=== PATIENT | female | born 1975 ===

== ENCOUNTER 2017-09-04 07:05 | Inpatient (IN) | payer MEDICAID, MEDICARE ==
[2017-09-04 07:16] VITALS: BMI 24.3
[2017-09-04] MEDS ORDERED: Albuterol-Ipratrop 3 mg / 0.5 (3 ml) UD IH STA (07:41)
[2017-09-04] MEDS ORDERED: Sodium Chloride 0.9% 1,000 ML IV STA (07:41)
[2017-09-04] MEDS ORDERED: Albuterol-Ipratrop 3 mg / 0.5 (3 ml) UD INH STA ×2 (07:41→07:42)
[2017-09-04] MEDS ORDERED: Albuterol-Ipratrop 3 mg / 0.5 (3 ml) UD ONE (08:04)
[2017-09-04 08:05] LABS: ABG ALLEN TEST YES
[2017-09-04 08:13] LABS: ARTERIAL BLOOD GAS HCO3 23.1 mmol/L (21-28); ARTERIAL BLOOD GAS PH 7.43 (7.35-7.45); ARTERIAL BLOOD GAS PO2 76 mm/Hg (80-100); VENOUS BLOOD GAS BASE EXCESS -2.3 mmol/L (0.0-2.0); VENOUS BLOOD GAS PCO2 32 mmHg (40-60); VENOUS BLOOD PH 7.43 (7.32-7.43)
--- NOTE | 2017-09-04 08:13 | ED PDOC ---
HPI: SOB/CHF/COPD Time Seen by Provider: 09/04/17 07:17 Chief Complaint (Nursing): Shortness Of Breath Chief Complaint (Provider): Shortness Of Breath History Per: Patient History/Exam Limitations: no limitations Onset/Duration Of Symptoms: Hrs (x2) Current Symptoms Are (Timing): Still Present Associated Symptoms: Productive Cough Additional Complaint(s): Miryam is a 42 y/o female with a past medical history of asthma who presents to the ED complaining of cough and shortness of breath, since 5:45 this morning. Patient describes episode as similar to asthma attacks in the past. Cough is productive of yellow-green sputum. Also complaining of generalized body aches but no nausea, vomiting, abdominal pain, diarrhea, weakness, numbness, or headache. Took Albuterol treatments at home without improvement. No chest pain. Nasal congestion. PMD: Anson Holder Past Medical History Reviewed: Historical Data, Nursing Documentation, Vital Signs Vital Signs: Last Vital Signs Temp 98 F 09/04/17 07:27 Pulse 123 H 09/04/17 07:27 Resp 22 09/04/17 07:27 BP 120/81 09/04/17 07:27 Pulse Ox 97 09/04/17 11:25 - Medical History PMH: Asthma, Migraine, Multiple Sclerosis Other PMH: Multiple sclerosis - Family History Family History: States: Unknown Family Hx - Living Arrangements Living Arrangements: With Family - Social History Current smoker - smoking cessation education provided: Yes Alcohol: Occasional Drugs: Cannabis - Allergies Allergies/Adverse Reactions: Allergies Allergy/AdvReac Type Severity Reaction Status Date / Time iodine Allergy RASH Verified 09/04/17 07:15 Review of Systems ROS Statement: Except As Marked, All Systems Reviewed And Found Negative Constitutional: Positive for: Other (body aches). Negative for: Fever, Chills ENT: Positive for: Nose Congestion Cardiovascular: Negative for: Chest Pain Respiratory: Positive for: Cough, Shortness of Breath, Sputum, Wheezing Gastrointestinal: Negative for: Nausea, Vomiting, Abdominal Pain, Diarrhea Musculoskeletal: Negative for: Back Pain Neurological: Negative for: Weakness, Numbness, Headache, Dizziness Physical Exam - Reviewed Nursing Documentation Reviewed: Yes Vital Signs Reviewed: Yes - Physical Exam Appears: Positive for: Uncomfortable Head Exam: Positive for: ATRAUMATIC, NORMAL INSPECTION, NORMOCEPHALIC Skin: Positive for: Normal Color, Warm, Dry Eye Exam: Positive for: EOMI, Normal appearance, PERRL ENT: Positive for: Normal ENT Inspection, Nasal Congestion Neck: Positive for: Normal, Painless ROM Cardiovascular/Chest: Positive for: Regular Rate, Rhythm. Negative for: Murmur Respiratory: Positive for: Wheezing (diffuse). Negative for: Respiratory Distress Gastrointestinal/Abdominal: Positive for: Normal Exam, Soft. Negative for: Tenderness Back: Positive for: Normal Inspection. Negative for: L CVA Tenderness, R CVA Tenderness, Vertebral Tenderness Extremity: Positive for: Normal ROM, Capillary Refill (< 2 sec). Negative for: Pedal Edema, Deformity Neurologic/Psych: Positive for: Alert, Oriented. Negative for: Motor/Sensory Deficits - Laboratory Results Result Diagrams: 09/04/17 08:00 09/04/17 08:00 Interpretation Of Abn Labs: no acute - ECG ECG: Positive for: Interpreted By Me, Viewed By Me ECG Rhythm: Positive for: Sinus Tachycardia. Negative for: ST/T Changes O2 Sat by Pulse Oximetry: 97 (RA) Pulse Ox Interpretation: Normal - Radiology X-Ray: Read By Radiologist X-Ray Interpretation: No Acute Disease - Progress ED Course And Treament: 1125: Stable. Still has dyspnea, wheezes. Will need admit for further eval. 1128: Spoke with Dr. Holder. Will admit tele obs and give further orders when pt. reaches floor. - Critical Care Total Time (In Min): 30 Documented Critical Care: Time excludes all time spent performint seperately billable procedures Medical Decision Making Medical Decision Making: Time: 07:41 Initial Plan: --ABG --VBG --B-type natriuretic peptide --CMP --Magnesium --Phosphorous --Troponin I --CBC --PTT --Prothrombin time --Blood culture --EKG --Chest X-Ray --Duoneb 3 ml INH x3 --Peak Flow pre/post treatment --NS IV 1000 ml at 1000 mls/hr --Solu-Medrol 125 mg IV --Pending reevaluation Scribe Attestation: Documented by Adrienne Rhoades, acting as a scribe for Benigno Naidu MD Provider Scribe Attestation: All medical record entries made by the Scribe were at my direction and personally dictated by me. I have reviewed the chart and agree that the record accurately reflects my personal performance of the history, physical exam, medical decision making, and the department course for this patient. I have also personally directed, reviewed, and agree with the discharge instructions and disposition. Disposition - Clinical Impression Clinical Impression: Asthma attack - Patient ED Disposition Is Patient to be Admitted: No Counseled Patient/Family Regarding: Studies Performed, Diagnosis - Disposition Disposition Time: 11:28 Condition: FAIR - Pt Status Changed To: Hospital Disposition Of: Observation - POA Present On Arrival: None
[2017-09-04 08:18] LABS: BASO % 0.1 % (0.0-2.0); EOS # 0.1 K/uL (0.0-0.7); EOS % 1.7 % (0.0-4.0); HEMATOCRIT 40.2 % (34.0-47.0); LYMPH # 0.9 K/uL (1.0-4.3); LYMPH % 11.1 % (20.0-40.0); MEAN CELL VOLUME 78.5 fl (81.0-99.0); MEAN CORPUSCULAR HEMOGLOBIN 26.1 pg (27.0-31.0); MEAN CORPUSCULAR HGB CONC 33.2 g/dL (33.0-37.0); MEAN PLATELET VOLUME 9.2 fl (7.2-11.7); MONO # 0.6 K/uL (0.0-0.8); MONO % 7.8 % (0.0-10.0); NEUT # 6.2 K/uL (1.8-7.0); NEUT % 79.3 % (50.0-75.0); NRBC % 0.1 % (0.0-0.0); RED CELL DISTRIBUTION WIDTH 18.9 % (11.5-14.5); WHITE BLOOD COUNT 7.9 K/uL (4.8-10.8)
[2017-09-04 08:27] LABS: ALB/GLOB RATIO 1.2 (1.0-2.1); ALKALINE PHOSPHATASE 106 U/L (38-126); ALT/SGPT 36 U/L (9-52); AST/SGOT 24 U/L (14-36); BILIRUBIN,TOTAL 0.3 mg/dl (0.2-1.3); BLOOD UREA NITROGEN 16 mg/dl (7-17); CALCIUM 8.9 mg/dL (8.4-10.2); CARBON DIOXIDE 23 mmol/L (22-30); CHLORIDE 109 mmol/L (98-107); GFR AFRICAN-AMERICAN > 60; GLUCOSE,RANDOM 118 mg/dL (65-105); MAGNESIUM 2.3 MG/DL (1.6-2.3); PHOSPHOROUS 2.3 mg/dl (2.5-4.5); POTASSIUM 3.7 MMOL/L (3.6-5.0); SODIUM 145 mmol/l (132-148); TOTAL PROTEIN 8.3 G/DL (6.3-8.2)
[2017-09-04 08:44] LABS: PARTIAL THROMBOPLASTIN TIME 30.8 Seconds (25.6-37.1)
--- NOTE | 2017-09-04 10:02 | RAD ---
HISTORY: Sepsis Patient COMPARISON: Chest radiographs 12/23/2012. FINDINGS: LUNGS: No active pulmonary disease. PLEURA: No significant pleural effusion identified, no pneumothorax apparent. CARDIOVASCULAR: Normal. OSSEOUS STRUCTURES: No significant abnormalities. VISUALIZED UPPER ABDOMEN: Normal. OTHER FINDINGS: None. IMPRESSION: No interval acute cardiopulmonary disease appreciated.
[2017-09-04] MEDS ORDERED: Magnesium Sulfate 2 gm/50 ml 2 GM/50 ML BAG IVPB ONE (11:24)
[2017-09-04] MEDS ORDERED: Magnesium Sulfate 2 gm/50 ml 2 GM/50 ML BAG ONE (11:31)
[2017-09-04] MEDS ORDERED: Sodium Chloride 3% for Inhalation 4 ML VIAL.NEB IH PRN (12:30)
--- NOTE | 2017-09-04 13:20 | CP.PCM.HP ---
History of Present Illness - History of Present Illness History of Present Illness: 42 y/o female with hx of advance MS and asthma. She c/o SOB since this morning, she used several times her beta agonist med by inh with no improvement. In ER she presented with severe SOB hypoxic 72% O2 in ABG. Still in distress Present on Admission - Present on Admission Any Indicators Present on Admission: No Review of Systems - Constitutional Constitutional: As Per HPI - EENT Eyes: As Per HPI - Cardiovascular Cardiovascular: As Per HPI - Respiratory Respiratory: Cough, Dyspnea, Wheezing - Gastrointestinal Gastrointestinal: As Per HPI - Musculoskeletal Musculoskeletal: As Per HPI - Neurological Neurological: As Per HPI - Psychiatric Psychiatric: As Per HPI Past Patient History - Past Social History Alcohol: Occasional Drugs: Cannabis - PULMONARY Hx Asthma: Yes - NEUROLOGICAL Hx Migraine: Yes Hx Multiple Sclerosis: Yes - PSYCHIATRIC Hx Substance Use: Yes - ANESTHESIA Hx Anesthesia: No Meds Allergies/Adverse Reactions: Allergies Allergy/AdvReac Type Severity Reaction Status Date / Time iodine Allergy RASH Verified 09/04/17 07:15 Physical Exam - Constitutional Appears: In Acute Distress - Head Exam Head Exam: ATRAUMATIC, NORMAL INSPECTION, NORMOCEPHALIC - Eye Exam Eye Exam: Normal appearance - ENT Exam ENT Exam: Mucous Membranes Moist - Neck Exam Neck exam: Positive for: Full Rom - Respiratory Exam Respiratory Exam: Wheezes - Cardiovascular Exam Cardiovascular Exam: REGULAR RHYTHM, +S1, +S2 - GI/Abdominal Exam GI & Abdominal Exam: Normal Bowel Sounds - Rectal Exam Rectal Exam: Deferred - Extremities Exam Extremities exam: Positive for: normal inspection - Back Exam Back exam: NORMAL INSPECTION - Neurological Exam Neurological exam: Alert, Oriented x3 - Psychiatric Exam Psychiatric exam: Anxious - Skin Skin Exam: Normal Color Results - Vital Signs Recent Vital Signs: Last Vital Signs Temp 97.7 F 09/04/17 13:05 Pulse 111 H 09/04/17 13:05 Resp 18 09/04/17 13:05 BP 142/82 09/04/17 13:05 Pulse Ox 95 09/04/17 13:05 - Labs Result Diagrams: 09/04/17 08:00 09/04/17 08:00 Labs: Laboratory Results - last 24 hr 09/04/17 09/04/17 09/04/17 07:55 08:00 08:00 WBC 7.9 RBC 5.12 Hgb 13.3 Hct 40.2 MCV 78.5 L MCH 26.1 L MCHC 33.2 RDW 18.9 H Plt Count 264 MPV 9.2 Neut % (Auto) 79.3 H Lymph % (Auto) 11.1 L Price % (Auto) 7.8 Eos % (Auto) 1.7 Baso % (Auto) 0.1 Neut # 6.2 Lymph # 0.9 L Price # 0.6 Eos # 0.1 Baso # 0.0 PT INR APTT pCO2 32 L pO2 76 H HCO3 23.1 ABG pH 7.43 ABG Total CO2 22.2 ABG O2 Saturation 98.3 H ABG Base Excess -2.3 L Merrill Test Yes ABG Potassium 3.3 L VBG pH 7.43 VBG pCO2 32 L VBG HCO3 23.1 VBG Total CO2 22.2 VBG O2 Sat (Calc) 98.3 H VBG Base Excess -2.3 L VBG Potassium 3.3 L A-a O2 Difference 84.0 Sodium 138.0 145 Chloride 108.0 H 109 H Glucose 113 H Lactate 1.4 FiO2 28.0 Potassium 3.7 Carbon Dioxide 23 Anion Gap 17 BUN 16 Creatinine 0.6 L Est GFR ( Amer) > 60 Est GFR (Non-Af Amer) > 60 Random Glucose 118 H Calcium 8.9 Phosphorus 2.3 L Magnesium 2.3 Total Bilirubin 0.3 AST 24 ALT 36 Alkaline Phosphatase 106 Troponin I < 0.0120 NT-Pro-B Natriuret Pep 147 Total Protein 8.3 H Albumin 4.6 Globulin 3.8 Albumin/Globulin Ratio 1.2 Arterial Blood Potassium 3.3 L Venous Blood Potassium 3.3 L 09/04/17 08:00 WBC RBC Hgb Hct MCV MCH MCHC RDW Plt Count MPV Neut % (Auto) Lymph % (Auto) Price % (Auto) Eos % (Auto) Baso % (Auto) Neut # Lymph # Price # Eos # Baso # PT 12.4 INR 1.1 APTT 30.8 pCO2 pO2 HCO3 ABG pH ABG Total CO2 ABG O2 Saturation ABG Base Excess Merrill Test ABG Potassium VBG pH VBG pCO2 VBG HCO3 VBG Total CO2 VBG O2 Sat (Calc) VBG Base Excess VBG Potassium A-a O2 Difference Sodium Chloride Glucose Lactate FiO2 Potassium Carbon Dioxide Anion Gap BUN Creatinine Est GFR ( Amer) Est GFR (Non-Af Amer) Random Glucose Calcium Phosphorus Magnesium Total Bilirubin AST ALT Alkaline Phosphatase Troponin I NT-Pro-B Natriuret Pep Total Protein Albumin Globulin Albumin/Globulin Ratio Arterial Blood Potassium Venous Blood Potassium Assessment & Plan (1) Hypoxia Status: Acute (2) Multiple sclerosis Status: Chronic (3) Asthma attack Status: Acute (4) Debility Status: Chronic - Assessment and Plan (Free Text) Plan: As per orders.
[2017-09-04] MEDS ORDERED: Potassium Chloride 10 mEq ER Tab PO ONE (13:29)
[2017-09-04] MEDS: Enoxaparin 40 mg Syringe SC SCH (15:50)
[2017-09-04] MEDS: Potassium & Sodium Phosphate PO SCH (15:50)
[2017-09-04] MEDS: Fluticasone-Salmeterol 250-50mcg Diskus IH SCH (15:50)
[2017-09-04] MEDS: Albuterol-Ipratrop 3 mg / 0.5 (3 ml) UD INH PRN ×2 (17:10→20:19)
[2017-09-04] MEDS ORDERED: Pneumococcal 23-Valent Vaccine IM ONE (20:00)
[2017-09-04] MEDS ORDERED: MethylPREDNISolone 40 mg Vial IVP SCH (21:00)
[2017-09-04] MEDS ORDERED: methylPREDNISolone 80 MG in Sodium Chloride 0.9% 50 ML IVPB SCH (21:00)
--- NOTE | 2017-09-04 22:05 | CARD ---
APPROVED REPORT EKG Measurement Heart [id number] <Conclusion> Sinus tachycardia Possible Left atrial enlargement Borderline ECG
[2017-09-05] MEDS: Fluticasone-Salmeterol 250-50mcg Diskus IH SCH (00:21)
[2017-09-05 06:51] LABS: HEMATOCRIT 34.9 % (34.0-47.0); MEAN CORPUSCULAR HGB CONC 33.3 g/dL (33.0-37.0); RED CELL DISTRIBUTION WIDTH 18.6 % (11.5-14.5); WHITE BLOOD COUNT 9.9 K/uL (4.8-10.8)
[2017-09-05 06:57] LABS: BLOOD UREA NITROGEN 16 mg/dl (7-17); CALCIUM 8.1 mg/dL (8.4-10.2); CARBON DIOXIDE 21 mmol/L (22-30); CHLORIDE 114 mmol/L (98-107); GFR AFRICAN-AMERICAN > 60; GLUCOSE,RANDOM 148 mg/dL (65-105); PHOSPHOROUS 2.5 mg/dl (2.5-4.5); SODIUM 144 mmol/l (132-148)
[2017-09-05] MEDS: Albuterol-Ipratrop 3 mg / 0.5 (3 ml) UD INH PRN (08:37)
[2017-09-05] MEDS ORDERED: MethylPREDNISolone 40 mg Vial IVP SCH ×2 (09:00→17:00)
[2017-09-05] MEDS ORDERED: Pneumococcal 23-Valent Vaccine IM ONE (09:00)
[2017-09-05] MEDS: Enoxaparin 40 mg Syringe SC SCH (09:57)
[2017-09-05] MEDS: Potassium & Sodium Phosphate PO SCH (10:00)
[2017-09-05] MEDS: Pantoprazole 40 mg EC Tab PO SCH (10:12)
--- NOTE | 2017-09-05 10:21 | CARD ---
APPROVED REPORT EXAM: Two-dimensional and M-mode echocardiogram with Doppler and color Doppler. Other Information Quality : AverageRhythm : Tachycardia INDICATION Pulmonary Hypertention 2D DIMENSIONS IVSd0.66 (0.7-1.1cm)LVDd3.85 (3.9-5.9cm) PWd0.72 (0.7-1.1cm)IVSs0.68 (0.8-1.2cm) LVDs3.20 (2.5-4.0cm)FS (%) 16.8 % PWs0.97 (0.8-1.2cm)LVEF (%)55.0 (>50%) Mitral Valve MV E Oomjsvrp00.9cm/sMV DECEL [id number] A Bqrasxtm60.5cm/s MV EEZ19cvF/A ratio0.9MVA (PHT)3.00cm2 TDI Lateral E' Peak V13.93cm/sMedial E' Peak V11.41cm/sE/Lateral E'5.1 E/Medial E'6.2 LEFT VENTRICLE The left ventricle is normal size. There is normal left ventricular wall thickness. The left ventricular function is normal. The left ventricular ejection fraction is within the normal range. There is normal LV segmental wall motion. Transmitral Doppler flow pattern is Grade I-abnormal relaxation pattern. RIGHT VENTRICLE The right ventricle is borderline dilated. There is normal right ventricular wall thickness. The right ventricular systolic function is normal. ATRIA The left atrium size is normal. The right atrium size is normal. AORTIC VALVE The aortic valve is not well visualized. No aortic regurgitation is present. There is no aortic valvular stenosis. MITRAL VALVE The mitral valve is normal in structure. There is no mitral valve stenosis. There is no mitral valve regurgitation noted. TRICUSPID VALVE The tricuspid valve is normal in structure. There is no tricuspid valve regurgitation noted. PULMONIC VALVE The pulmonary valve is normal in structure. There is no pulmonic valvular regurgitation. GREAT VESSELS The aortic root is normal in size. The IVC is normal in size and collapses >50% with inspiration. PERICARDIAL EFFUSION The pericardium appears normal. <Conclusion> The left ventricle is normal size. There is normal left ventricular wall thickness. The left ventricular function is normal. The left ventricular ejection fraction is within the normal range. There is normal LV segmental wall motion. Transmitral Doppler flow pattern is Grade I-abnormal relaxation pattern.
[2017-09-05] MEDS: Albuterol-Ipratrop 3 mg / 0.5 (3 ml) UD INH SCH ×3 (11:07→19:22)
--- NOTE | 2017-09-05 11:18 | CP.PCM.CON ---
History of Present Illness - History of Present Illness History of Present Illness: This 42-year-old female with a history of bronchial asthma since childhood and was admitted via the emergency department because of an acute exacerbation of cough with wheezing and chest tightness. She had been in her usual state of health at home until the day prior to admission when she began to have increased need to use her rescue inhaler. She had continue using all her maintenance medications in the form of Advair 250/50 and montelukast 10 mg as usual. She awoke the morning of admission with significant chest tightness and difficulty breathing prompting her to present to the emergency department. She has had a number of hospitalizations because of asthma exacerbations which included ICU admission and endotracheal intubation. Past Patient History - Past Medical History & Family History Past Medical History?: Yes - Past Social History Smoking Status: Light Smoker < 10 Cigarettes Daily - PULMONARY Hx Asthma: Yes - NEUROLOGICAL Hx Migraine: Yes Hx Multiple Sclerosis: Yes - MUSCULOSKELETAL/RHEUMATOLOGICAL Hx Falls: No - PSYCHIATRIC Hx Substance Use: Yes - SURGICAL HISTORY Hx Cholecystectomy: Yes - ANESTHESIA Hx Anesthesia: Yes Hx Anesthesia Reactions: No Meds Allergies/Adverse Reactions: Allergies Allergy/AdvReac Type Severity Reaction Status Date / Time iodine Allergy RASH Verified 09/04/17 07:15 - Medications Medications: Current Medications Albuterol/Ipratropium (Duoneb 3 Mg/0.5 Mg (3 Ml) Ud) 3 ml INH RQ4 RICA Last Admin: 09/05/17 11:07 Dose: 3 ml Albuterol/Ipratropium (Duoneb 3 Mg/0.5 Mg (3 Ml) Ud) 3 ml INH RQ4 PRN PRN Reason: Shortness of Breath Last Admin: 09/05/17 08:37 Dose: 3 ml Baclofen (Lioresal) 20 mg PO TID RICA Last Admin: 09/05/17 09:58 Dose: 20 mg Enoxaparin Sodium (Lovenox) 40 mg SC DAILY RICA PRN Reason: Protocol Last Admin: 09/05/17 09:57 Dose: 40 mg Ceftriaxone Sodium 1 gm/ (Sodium Chloride) 100 mls @ 100 mls/hr IVPB DAILY RICA PRN Reason: Protocol Last Admin: 09/04/17 15:46 Dose: 100 mls/hr Methylprednisolone (Solu-Medrol) 40 mg IVP Q12 [facility] Last Admin: 09/05/17 09:58 Dose: 40 mg Montelukast Sodium (Singulair) 10 mg PO HS [facility] Last Admin: 09/04/17 21:44 Dose: 10 mg Pantoprazole Sodium (Protonix Ec Tab) 40 mg PO DAILY [facility] Last Admin: 09/05/17 10:12 Dose: 40 mg Potassium Phos/Sodium Phos (Neutra-Phos) 1 pkt PO DAILY [facility] Last Admin: 09/05/17 10:00 Dose: 1 pkt Fluticasone/Salmeterol (Advair Diskus 250/50) 1 puff IH Q12H [facility] Last Admin: 09/05/17 00:21 Dose: 1 puff Results - Vital Signs Recent Vital Signs: Last Vital Signs Temp 97.6 F 09/05/17 07:40 Pulse 91 H 09/05/17 07:40 Resp 18 09/05/17 07:40 BP 98/56 L 09/05/17 07:40 Pulse Ox 100 09/05/17 07:40 - Labs Result Diagrams: 09/05/17 06:30 09/05/17 06:30 Labs: Laboratory Results - last 24 hr 09/05/17 09/05/17 06:30 06:30 WBC 9.9 RBC 4.47 Hgb 11.6 L Hct 34.9 MCV 78.0 L MCH 26.0 L MCHC 33.3 RDW 18.6 H Plt Count 260 Sodium 144 Potassium 4.0 Chloride 114 H Carbon Dioxide 21 L Anion Gap 13 BUN 16 Creatinine 0.5 L Est GFR ( Amer) > 60 Est GFR (Non-Af Amer) > 60 Random Glucose 148 H Calcium 8.1 L Phosphorus 2.5 Assessment & Plan (1) Asthma exacerbation Status: Acute Priority: High - Assessment and Plan (Free Text) Assessment: The patient continues to exhibit shortness of breath with audible wheezing. She appears to require increased frequency of inhalation treatments and continued parenteral corticosteroids. Further lab testing for IgE and allergy panel have been requested and she may benefit from referral to allergy/immunology as an outpatient for consideration of treatment with Xolair. - Date & Time Date: 09/05/17 Time: 11:24
--- NOTE | 2017-09-05 11:47 | RAD ---
HISTORY: Bronchitis COMPARISON: September 04, 2017. TECHNIQUE: Chest PA and lateral FINDINGS: LUNGS: No active pulmonary disease. PLEURA: No significant pleural effusion identified. No pneumothorax apparent. CARDIOVASCULAR: Normal. OSSEOUS STRUCTURES: No significant abnormalities. VISUALIZED UPPER ABDOMEN: Normal. OTHER FINDINGS: None. IMPRESSION: No active disease. No significant interval change compared to the prior examination(s).
--- NOTE | 2017-09-05 13:53 | CP.PCM.PN ---
Subjective - Date & Time of Evaluation Date of Evaluation: 09/05/17 Time of Evaluation: 13:57 - Subjective Subjective: Patient still with dyspenea with auditory wheezing and she has difficult to talk. Patient with severe MS with weakness of the accessory muscle not responding well to the present iv steroid therapy. She has expiratory wheezing with decrease of the intensity of the breath sound, the sternocleidomastoid muscle contracted with same intercostal and supraclavicular contraction. Not able to articulate her speech clearly with flebile expiratory sound of the voice. She evidently reveled a weekended of he chest muscle with speech interruption by the breath. Patient anxious. Will increase steroid iv. and will follow with neuro consult for possible exacerbation of MS. Objective - Vital Signs/Intake and Output Vital Signs (last 24 hours): Temp Pulse Resp BP Pulse Ox 97.3 F L 95 H 18 117/78 95 09/05/17 11:47 09/05/17 12:40 09/05/17 11:47 09/05/17 11:47 09/05/17 12:40 - Medications Medications: Current Medications Albuterol/Ipratropium (Duoneb 3 Mg/0.5 Mg (3 Ml) Ud) 3 ml INH RQ4 RICA Last Admin: 09/05/17 11:07 Dose: 3 ml Albuterol/Ipratropium (Duoneb 3 Mg/0.5 Mg (3 Ml) Ud) 3 ml INH RQ4 PRN PRN Reason: Shortness of Breath Last Admin: 09/05/17 08:37 Dose: 3 ml Baclofen (Lioresal) 20 mg PO TID RICA Last Admin: 09/05/17 09:58 Dose: 20 mg Enoxaparin Sodium (Lovenox) 40 mg SC DAILY RICA PRN Reason: Protocol Last Admin: 09/05/17 09:57 Dose: 40 mg Ceftriaxone Sodium 1 gm/ (Sodium Chloride) 100 mls @ 100 mls/hr IVPB DAILY RICA PRN Reason: Protocol Last Admin: 09/05/17 12:41 Dose: 100 mls/hr Methylprednisolone (Solu-Medrol) 40 mg IVP Q12 [facility] Last Admin: 09/05/17 09:58 Dose: 40 mg Montelukast Sodium (Singulair) 10 mg PO HS RICA Last Admin: 09/04/17 21:44 Dose: 10 mg Pantoprazole Sodium (Protonix Ec Tab) 40 mg PO DAILY [facility] Last Admin: 09/05/17 10:12 Dose: 40 mg Potassium Phos/Sodium Phos (Neutra-Phos) 1 pkt PO DAILY [facility] Last Admin: 09/05/17 10:00 Dose: 1 pkt Fluticasone/Salmeterol (Advair Diskus 250/50) 1 puff IH Q12H [facility] Last Admin: 09/05/17 00:21 Dose: 1 puff - Labs Labs: 09/05/17 06:30 09/05/17 06:30 PT 12.4 Seconds (9.8-13.1) 09/04/17 08:00 INR 1.1 (0.9-1.2) 09/04/17 08:00 APTT 30.8 Seconds (25.6-37.1) 09/04/17 08:00 - Constitutional Appears: In Acute Distress, Chronically Ill - Head Exam Head Exam: ATRAUMATIC, NORMAL INSPECTION, NORMOCEPHALIC - Eye Exam Eye Exam: Normal appearance - ENT Exam ENT Exam: Mucous Membranes Moist - Neck Exam Neck Exam: Full ROM - Respiratory Exam Respiratory Exam: Decreased Breath Sounds, Wheezes - Cardiovascular Exam Cardiovascular Exam: REGULAR RHYTHM, +S1, +S2 - GI/Abdominal Exam GI & Abdominal Exam: Soft, Normal Bowel Sounds - Extremities Exam Extremities Exam: Normal Inspection - Neurological Exam Neurological Exam: Awake, Oriented x3 - Psychiatric Exam Psychiatric exam: Anxious - Skin Skin Exam: Pallor Assessment and Plan (1) Hypoxia Status: Acute (2) Multiple sclerosis Status: Chronic (3) Asthma attack Status: Acute (4) Debility Status: Chronic (5) Multiple sclerosis exacerbation Status: Acute - Assessment and Plan (Free Text) Plan: As above
[2017-09-06] MEDS: Albuterol-Ipratrop 3 mg / 0.5 (3 ml) UD INH SCH ×6 (00:01→19:16)
[2017-09-06] MEDS: Enoxaparin 40 mg Syringe SC SCH (09:18)
[2017-09-06] MEDS: Potassium & Sodium Phosphate PO SCH (09:18)
[2017-09-06] MEDS: Pantoprazole 40 mg EC Tab PO SCH (09:18)
[2017-09-06 10:08] LABS: HEMATOCRIT 36.9 % (34.0-47.0); MEAN CELL VOLUME 79.7 fl (81.0-99.0); MEAN CORPUSCULAR HEMOGLOBIN 25.4 pg (27.0-31.0); MEAN CORPUSCULAR HGB CONC 31.9 g/dL (33.0-37.0); RED CELL DISTRIBUTION WIDTH 18.6 % (11.5-14.5); WHITE BLOOD COUNT 12.4 K/uL (4.8-10.8)
[2017-09-06 10:22] LABS: BLOOD UREA NITROGEN 20 mg/dl (7-17); CALCIUM 8.2 mg/dL (8.4-10.2); CARBON DIOXIDE 21 mmol/L (22-30); CHLORIDE 113 mmol/L (98-107); GFR AFRICAN-AMERICAN > 60; GLUCOSE,RANDOM 145 mg/dL (65-105); POTASSIUM 4.2 MMOL/L (3.6-5.0); SODIUM 144 mmol/l (132-148)
--- NOTE | 2017-09-06 11:47 | CP.PCM.PCO ---
Assessment & Plan - Assessment and Plan (Free Text) Assessment: pt. admitted with Asthma Exacerbation/ MS pt. will require 7 days of Rocephin 1 gm IV daily and Solumedrol 60mg q8 iv cont. duoneb q 4 hrs cont. PT/OT
--- NOTE | 2017-09-06 12:51 | CP.PCM.PN ---
Subjective - Date & Time of Evaluation Date of Evaluation: 09/06/17 Time of Evaluation: 12:52 - Subjective Subjective: Patient still with dyspnea non minimal extortion, she able to better articulate the speech responding to steroid therapy. Still with fatigue and weakness in the lower limbs. She is in need of several days of iv steroid and rehab (1 week) . Will continue present rx. Objective - Vital Signs/Intake and Output Vital Signs (last 24 hours): Temp Pulse Resp BP Pulse Ox 97.7 F 87 20 126/78 97 09/06/17 12:09 09/06/17 12:09 09/06/17 12:09 09/06/17 12:09 09/06/17 12:09 - Medications Medications: Current Medications Albuterol/Ipratropium (Duoneb 3 Mg/0.5 Mg (3 Ml) Ud) 3 ml INH RQ4 RICA Last Admin: 09/06/17 11:03 Dose: 3 ml Albuterol/Ipratropium (Duoneb 3 Mg/0.5 Mg (3 Ml) Ud) 3 ml INH RQ4 PRN PRN Reason: Shortness of Breath Last Admin: 09/05/17 08:37 Dose: 3 ml Baclofen (Lioresal) 20 mg PO TID RICA Last Admin: 09/06/17 09:18 Dose: 20 mg Enoxaparin Sodium (Lovenox) 40 mg SC DAILY RICA PRN Reason: Protocol Last Admin: 09/06/17 09:18 Dose: 40 mg Ceftriaxone Sodium 1 gm/ (Sodium Chloride) 100 mls @ 100 mls/hr IVPB DAILY RICA PRN Reason: Protocol Last Admin: 09/06/17 09:18 Dose: 100 mls/hr Ibuprofen (Motrin Tab) 400 mg PO Q6 PRN PRN Reason: Pain, moderate (4-7) Last Admin: 09/06/17 10:57 Dose: 400 mg Lactulose (Enulose) 10 gm PO DAILY PRN PRN Reason: Constipation Last Admin: 09/06/17 10:56 Dose: 10 gm Methylprednisolone (Solu-Medrol) 60 mg IVP Q8 RICA Montelukast Sodium (Singulair) 10 mg PO HS RICA Last Admin: 09/05/17 21:36 Dose: 10 mg Pantoprazole Sodium (Protonix Ec Tab) 40 mg PO DAILY [facility]ICA Last Admin: 09/06/17 09:18 Dose: 40 mg Potassium Phos/Sodium Phos (Neutra-Phos) 1 pkt PO DAILY [facility]ICA Last Admin: 09/06/17 09:18 Dose: 1 pkt Fluticasone/Salmeterol (Advair Diskus 250/50) 1 puff IH Q12H [facility] Last Admin: 09/05/17 00:21 Dose: 1 puff - Labs Labs: 09/06/17 09:50 09/06/17 09:50 PT 12.4 Seconds (9.8-13.1) 09/04/17 08:00 INR 1.1 (0.9-1.2) 09/04/17 08:00 APTT 30.8 Seconds (25.6-37.1) 09/04/17 08:00 - Constitutional Appears: Chronically Ill - Head Exam Head Exam: ATRAUMATIC, NORMAL INSPECTION, NORMOCEPHALIC - Eye Exam Eye Exam: Normal appearance - ENT Exam ENT Exam: Mucous Membranes Moist - Neck Exam Neck Exam: Full ROM - Respiratory Exam Respiratory Exam: Decreased Breath Sounds, Wheezes - Cardiovascular Exam Cardiovascular Exam: Tachycardia, REGULAR RHYTHM, +S1, +S2 - GI/Abdominal Exam GI & Abdominal Exam: Soft, Normal Bowel Sounds - Neurological Exam Neurological Exam: Abnormal Gait, Alert, Awake - Psychiatric Exam Psychiatric exam: Anxious - Skin Skin Exam: Normal Color Assessment and Plan (1) Hypoxia Status: Acute (2) Multiple sclerosis Status: Chronic (3) Asthma attack Status: Acute (4) Debility Status: Chronic (5) Multiple sclerosis exacerbation Status: Acute - Assessment and Plan (Free Text) Plan: Continue present rx
--- NOTE | 2017-09-06 14:46 | PQF GENQUE ---
Dr. Holder, Please clarify type of asthma: if known: i.e. Mild intermittent Mild persistent Moderate persistent Severe persistent Other (please specify) Clinically unable to determine Unknown H and P; hx of advance MS and asthma. She c/o SOB since this morning, she used several times her beta agonist med by inh with no improvement. In ER she presented with severe SOB hypoxic 72% O2 in ABG. Still in distress Assessment Plan : (1) Hypoxia Status: Acute (2) Multiple sclerosis Status: Chronic (3) Asthma attack Status: Acute (4) Debility Status: Chronic Pulmonary consult; She has had a number of hospitalizations because of asthma exacerbations which included ICU admission and endotracheal intubation. (1) Asthma exacerbation Status: Acute Priority: High Assessment: The patient continues to exhibit shortness of breath with audible wheezing. She appears to require increased frequency of inhalation treatments and continued parenteral corticosteroids. Further lab testing for IgE and allergy panel have been requested and she may benefit from referral to allergy/ immunology as an outpatient for consideration of treatment with Xolair. This form is a permanent part of the medical record Clarification of your documentation is requested to better reflect the severity of illness and intensity of treatment of your patient. Indicators present [] Specify: [X severe persistent] [] Specify: [] [] Specify: [] [] Specify: [] Location in the medical record that reflects the above clinical findings: [] Treatment Provided: [] PHYSICIAN'S RESPONSE Based on your medical judgment of the clinical indicators outlined above please clarify the following: []Asthma severe persistent Practitioner response [] If unable to determine, please check the box, sign and date. Present On Admission (POA) Indicator: [] Present at the time of admission [] Not present at the time of admission [] Clinically Undetermined In responding to this query, please exercise your independent professional judgment. The fact that a question is asked does not imply that any particular answer is desired or expected. Thank you for your clarification on this documentation. If you have any questions please call. * Thank you, Rosita Haywood RN ext. #[phone] MTDD
[2017-09-07] MEDS: Albuterol-Ipratrop 3 mg / 0.5 (3 ml) UD INH SCH ×6 (00:17→19:44)
--- NOTE | 2017-09-07 08:04 | CON ---
UNIT NUMBER: [id number] ATTENDING PHYSICIAN: Anson Holder MD LOCATION: The patient is in room number 403, bed 2. REASON FOR THE CONSULTATION: Multiple sclerosis. CHIEF COMPLAINT: Patient was brought into hospital with the history of worsening bleeding. Since she has been carrying the diagnosis of multiple sclerosis, I was called in to evaluate her for further management. HISTORY OF PRESENT ILLNESS: Ms. Miryam Queen is a 42-year-old right-handed female who is known to me for her previous hospitalization at [facility] (Former[facility]) and who has been following me as outpatient, and who is scheduled to get disease modifying agent at my office for infusion. She has had episode of shortness of breath and that bring her to the hospital for further evaluation. She denies any headache, visual or bulbar dysfunction; however, she is complaining of leg weakness and spasm. The current medication, which she is taking, is not helping her. PERSONAL HISTORY: Denies smoking or alcohol use. REVIEW OF THE SYSTEMS: As per H and P. CURRENT MEDICATIONS: Advair, DuoNeb, Lovenox, Motrin, Neutra-Phos, Protonix, montelukast, and Solu-Medrol. PHYSICAL EXAMINATION VITAL SIGNS: Blood pressure 108/68, mean arterial pressure of 81, respiratory rate 16, temperature 97.4, pulse rate 69 and regular. NECK: Supple. No carotid bruits. HEART: Sounds are regular. CHEST: Fair air entry. EXTREMITIES: No edema in legs. NEUROLOGICAL: MENTAL STATUS EXAMINATION: She is awake, alert, and oriented to person, place and time. Speech is clear. Naming, repetition, fluency, comprehension all within normal. CRANIAL NERVE EXAMINATION: Visual correa intact. Pupils reactive to light. Extraocular movement normal. No afferent pupillary defect. Good corneal reflex. No end gaze nystagmus. No facial sensory deficit. No facial asymmetry. Hearing is normal. Tongue is midline. Good gag. MOTOR EXAMINATION: On outstretched hand with eyes closed, mild sensory tremor noted in both hands. Strength is normal. Tone is increased in both lower extremities. DEEP TENDON REFLEXES: Biceps, brachialis, and triceps are trace. Both knees are 2+. Both ankles are absent. Plantars are upgoing on both sides. COORDINATION: Finger-nose testing is abnormal on both hands. Gait, waddling gait. She uses a cane for walking. WORKUP: WBC 12.4, hemoglobin 11.8, hematocrit 36.9, platelets 250. PT 12.4, INR 1.1, PTT 30.8. Sodium 144, potassium 4.2, chloride 113, bicarbonate 21, BUN 20, creatinine 0.5, GFR more than 60, random glucose of 145, calcium 8.2. Her immunology, IgE is high at 916. CONCLUSION: Ms. Miryam Queen has been presenting with increasing stiffness and tightness of her lower back with weakness, all secondary to her existing multiple sclerosis. RECOMMENDATIONS: 1. I would like to add Zanaflex with baclofen at present. 2. Physical therapy to improve her gait. 3. No further workup is needed except for urinalysis with culture and sensitivity to rule out any urinary tract infection. 4. When medically stable, patient can be discharged and she was advised to come and see me for followup visit to get disease-modifying agent. Kun Rainey MD MTDD
[2017-09-07] MEDS: Pantoprazole 40 mg EC Tab PO SCH (08:14)
[2017-09-07] MEDS: Potassium & Sodium Phosphate PO SCH (08:15)
[2017-09-07] MEDS: Enoxaparin 40 mg Syringe SC SCH (08:16)
--- NOTE | 2017-09-07 08:19 | CP.PCM.PN ---
Subjective - Date & Time of Evaluation Date of Evaluation: 09/06/17 Time of Evaluation: 09:00 - Subjective Subjective: Seen on morning rounds in the telemetry unit. The patient appears to be improving slowly and her respiratory distress is significantly decreased compared to admission. Her voice has improved significantly and she is able to communicate in full sentences. Breath sounds have improved bilaterally with occasional persistent faint expiratory wheezing heard but sibilant and sonorous rhonchi have decreased significantly. No rales or bronchial breath sounds. Will reduce parenteral corticosteroids today to 60 every 8 hours and consider further decrease daily as tolerated. Continue nebulizer therapy with ipratropium /albuterol on a frequent basis every 4 hours for another day. Allergy testing has been requested and sent out, results are pending. Objective - Vital Signs/Intake and Output Vital Signs (last 24 hours): Temp Pulse Resp BP Pulse Ox 97.7 F 96 H 20 134/76 95 09/07/17 08:00 09/07/17 08:00 09/07/17 08:00 09/07/17 08:00 09/07/17 08:00 - Medications Medications: Current Medications Albuterol/Ipratropium (Duoneb 3 Mg/0.5 Mg (3 Ml) Ud) 3 ml INH RQ4 [facility]ICA Last Admin: 09/07/17 08:04 Dose: 3 ml Albuterol/Ipratropium (Duoneb 3 Mg/0.5 Mg (3 Ml) Ud) 3 ml INH RQ4 PRN PRN Reason: Shortness of Breath Last Admin: 09/05/17 08:37 Dose: 3 ml Baclofen (Lioresal) 20 mg PO TID [facility] Last Admin: 09/06/17 16:36 Dose: 20 mg Enoxaparin Sodium (Lovenox) 40 mg SC DAILY [facility] PRN Reason: Protocol Last Admin: 09/06/17 09:18 Dose: 40 mg Ceftriaxone Sodium 1 gm/ (Sodium Chloride) 100 mls @ 100 mls/hr IVPB DAILY [facility] PRN Reason: Protocol Last Admin: 09/06/17 09:18 Dose: 100 mls/hr Ibuprofen (Motrin Tab) 400 mg PO Q6 PRN PRN Reason: Pain, moderate (4-7) Last Admin: 09/06/17 18:44 Dose: 400 mg Lactulose (Enulose) 10 gm PO DAILY PRN PRN Reason: Constipation Last Admin: 09/06/17 10:56 Dose: 10 gm Methylprednisolone (Solu-Medrol) 60 mg IVP Q8 [facility] Last Admin: 09/07/17 00:36 Dose: 60 mg Montelukast Sodium (Singulair) 10 mg PO HS [facility] Last Admin: 09/06/17 21:27 Dose: 10 mg Pantoprazole Sodium (Protonix Ec Tab) 40 mg PO DAILY [facility] Last Admin: 09/06/17 09:18 Dose: 40 mg Potassium Phos/Sodium Phos (Neutra-Phos) 1 pkt PO DAILY [facility] Last Admin: 09/06/17 09:18 Dose: 1 pkt Fluticasone/Salmeterol (Advair Diskus 250/50) 1 puff IH Q12H [facility] Last Admin: 09/05/17 00:21 Dose: 1 puff - Labs Labs: 09/06/17 09:50 09/06/17 09:50 PT 12.4 Seconds (9.8-13.1) 09/04/17 08:00 INR 1.1 (0.9-1.2) 09/04/17 08:00 APTT 30.8 Seconds (25.6-37.1) 09/04/17 08:00 Assessment and Plan (1) Asthma exacerbation Status: Acute
--- NOTE | 2017-09-07 11:58 | CP.PCM.PN ---
Subjective - Date & Time of Evaluation Date of Evaluation: 09/07/17 Time of Evaluation: 12:00 - Subjective Subjective: Patient clinically in distress with minimal exertion. Not able to tolerate any minimal exercise and she stated that she is in need of O2 constantly, despite that the O2 sat appears wnl . Will follow Peak flow pre and post. Continue steroid iv. She still has same audible wheezing Objective - Vital Signs/Intake and Output Vital Signs (last 24 hours): Temp Pulse Resp BP Pulse Ox 97.7 F 96 H 20 134/76 95 09/07/17 08:00 09/07/17 08:00 09/07/17 08:00 09/07/17 08:00 09/07/17 08:00 - Medications Medications: Current Medications Albuterol/Ipratropium (Duoneb 3 Mg/0.5 Mg (3 Ml) Ud) 3 ml INH RQ4 RICA Last Admin: 09/07/17 08:04 Dose: 3 ml Albuterol/Ipratropium (Duoneb 3 Mg/0.5 Mg (3 Ml) Ud) 3 ml INH RQ4 PRN PRN Reason: Shortness of Breath Last Admin: 09/05/17 08:37 Dose: 3 ml Baclofen (Lioresal) 20 mg PO TID [facility] Last Admin: 09/07/17 08:14 Dose: 20 mg Enoxaparin Sodium (Lovenox) 40 mg SC DAILY [facility] PRN Reason: Protocol Last Admin: 09/07/17 08:16 Dose: 40 mg Ceftriaxone Sodium 1 gm/ (Sodium Chloride) 100 mls @ 100 mls/hr IVPB DAILY [facility] PRN Reason: Protocol Last Admin: 09/07/17 08:13 Dose: 100 mls/hr Ibuprofen (Motrin Tab) 400 mg PO Q6 PRN PRN Reason: Pain, moderate (4-7) Last Admin: 09/06/17 18:44 Dose: 400 mg Lactulose (Enulose) 10 gm PO DAILY PRN PRN Reason: Constipation Last Admin: 09/06/17 10:56 Dose: 10 gm Methylprednisolone (Solu-Medrol) 60 mg IVP Q8 [facility] Last Admin: 09/07/17 08:13 Dose: 60 mg Montelukast Sodium (Singulair) 10 mg PO HS [facility] Last Admin: 09/06/17 21:27 Dose: 10 mg Pantoprazole Sodium (Protonix Ec Tab) 40 mg PO DAILY [facility] Last Admin: 09/07/17 08:14 Dose: 40 mg Potassium Phos/Sodium Phos (Neutra-Phos) 1 pkt PO DAILY [facility] Last Admin: 09/07/17 08:15 Dose: 1 pkt Fluticasone/Salmeterol (Advair Diskus 250/50) 1 puff IH Q12H [facility] Last Admin: 09/05/17 00:21 Dose: 1 puff - Labs Labs: 09/06/17 09:50 09/06/17 09:50 PT 12.4 Seconds (9.8-13.1) 09/04/17 08:00 INR 1.1 (0.9-1.2) 09/04/17 08:00 APTT 30.8 Seconds (25.6-37.1) 09/04/17 08:00 - Constitutional Appears: Chronically Ill - Head Exam Head Exam: ATRAUMATIC, NORMAL INSPECTION, NORMOCEPHALIC - Eye Exam Eye Exam: Normal appearance - ENT Exam ENT Exam: Mucous Membranes Moist - Neck Exam Neck Exam: Full ROM - Respiratory Exam Respiratory Exam: Decreased Breath Sounds, Wheezes - Cardiovascular Exam Cardiovascular Exam: REGULAR RHYTHM, +S1, +S2 - GI/Abdominal Exam GI & Abdominal Exam: Soft, Normal Bowel Sounds - Neurological Exam Neurological Exam: Abnormal Gait, Alert, Awake, Oriented x3 - Psychiatric Exam Psychiatric exam: Anxious - Skin Skin Exam: Normal Color Assessment and Plan (1) Hypoxia Status: Acute (2) Multiple sclerosis Status: Chronic (3) Asthma attack Status: Acute (4) Debility Status: Chronic (5) Multiple sclerosis exacerbation Status: Acute (6) Asthma, severe persistent Status: Acute - Assessment and Plan (Free Text) Plan: Continue present rx.
--- NOTE | 2017-09-07 13:12 | CP.PCM.PN ---
Subjective - Date & Time of Evaluation Date of Evaluation: 09/07/17 Time of Evaluation: 11:30 - Subjective Subjective: The patient was seen on rounds in telemetry. Her voice appears stronger and in general she appears somewhat more comfortable. Her peak flows are noted to be persistently low at 150 L/m both pre-and post today. Her vital signs otherwise appear to be stable. Objective - Vital Signs/Intake and Output Vital Signs (last 24 hours): Temp Pulse Resp BP Pulse Ox 97.2 F L 103 H 18 117/69 94 L 09/07/17 12:34 09/07/17 12:34 09/07/17 12:34 09/07/17 12:34 09/07/17 12:34 - Medications Medications: Current Medications Albuterol/Ipratropium (Duoneb 3 Mg/0.5 Mg (3 Ml) Ud) 3 ml INH RQ4 PRN PRN Reason: Shortness of Breath Last Admin: 09/05/17 08:37 Dose: 3 ml Albuterol/Ipratropium (Duoneb 3 Mg/0.5 Mg (3 Ml) Ud) 3 ml INH RQID [facility] Baclofen (Lioresal) 20 mg PO TID [facility] Last Admin: 09/07/17 12:25 Dose: 20 mg Enoxaparin Sodium (Lovenox) 40 mg SC DAILY [facility] PRN Reason: Protocol Last Admin: 09/07/17 08:16 Dose: 40 mg Ceftriaxone Sodium 1 gm/ (Sodium Chloride) 100 mls @ 100 mls/hr IVPB DAILY [facility] PRN Reason: Protocol Last Admin: 09/07/17 08:13 Dose: 100 mls/hr Ibuprofen (Motrin Tab) 400 mg PO Q6 PRN PRN Reason: Pain, moderate (4-7) Last Admin: 09/06/17 18:44 Dose: 400 mg Lactulose (Enulose) 10 gm PO DAILY PRN PRN Reason: Constipation Last Admin: 09/06/17 10:56 Dose: 10 gm Methylprednisolone (Solu-Medrol) 40 mg IVP Q8 [facility] Montelukast Sodium (Singulair) 10 mg PO HS [facility] Last Admin: 09/06/17 21:27 Dose: 10 mg Pantoprazole Sodium (Protonix Ec Tab) 40 mg PO DAILY [facility] Last Admin: 09/07/17 08:14 Dose: 40 mg Potassium Phos/Sodium Phos (Neutra-Phos) 1 pkt PO DAILY [facility] Last Admin: 09/07/17 08:15 Dose: 1 pkt Fluticasone/Salmeterol (Advair Diskus 250/50) 1 puff IH Q12H [facility] Last Admin: 09/05/17 00:21 Dose: 1 puff - Labs Labs: 09/06/17 09:50 09/06/17 09:50 PT 12.4 Seconds (9.8-13.1) 09/04/17 08:00 INR 1.1 (0.9-1.2) 09/04/17 08:00 APTT 30.8 Seconds (25.6-37.1) 09/04/17 08:00 Assessment and Plan (1) Asthma exacerbation Status: Acute
[2017-09-07 17:28] LABS: RBC URINE 869 /hpf (0-3); URINE BILIRUBIN NEGATIVE (NEGATIVE); URINE BLOOD LARGE (NEGATIVE); URINE COLOR YELLOW (YELLOW); URINE GLUCOSE (UA) NEG (Normal); URINE KETONE NEGATIVE (NEGATIVE); URINE LEUKOCYTE ESTERASE NEG Leu/uL (Negative); URINE PROTEIN 100 mg/dL (NEGATIVE); URINE UROBILINOGEN 0.2-1.0 mg/dL (0.2-1.0); WBC URINE 18 /hpf (0-5)
[2017-09-07] MEDS: MethylPREDNISolone 40 mg Vial IVP SCH (18:56)
[2017-09-08] MEDS: MethylPREDNISolone 40 mg Vial IVP SCH ×4 (01:05→16:51)
[2017-09-08] MEDS: Albuterol-Ipratrop 3 mg / 0.5 (3 ml) UD INH SCH ×4 (07:49→19:51)
[2017-09-08] MEDS: Potassium & Sodium Phosphate PO SCH (08:55)
[2017-09-08] MEDS ORDERED: Lactulose 10 gm/15 ml Syrup PO PRN (09:00)
[2017-09-08] MEDS: Pantoprazole 40 mg EC Tab PO SCH (09:03)
--- NOTE | 2017-09-08 10:05 | US ---
PROCEDURE: Bilateral lower extremity venous duplex Doppler. HISTORY: r/o dvt COMPARISON: None available. TECHNIQUE: Bilateral common femoral, superficial femoral, popliteal and posterior tibial veins were evaluated. Flow was assessed with color Doppler, compressibility, assessment of phasic flow and augmentation response. FINDINGS: COMMON FEMORAL VEIN: Right CFV: Unremarkable. Left CFV: Unremarkable. SUPERFICIAL FEMORAL VEIN: Right SFV: Unremarkable. Left SFV: Unremarkable. POPLITEAL VEIN: Right Popliteal: Unremarkable. Left Popliteal: Unremarkable. POSTERIOR TIBIAL VEIN: Right PTV: Unremarkable. Left PTV: Unremarkable. OTHER FINDINGS: None. IMPRESSION: No evidence of deep venous thrombosis.
--- NOTE | 2017-09-08 12:12 | CP.PCM.PN ---
Subjective - Date & Time of Evaluation Date of Evaluation: 09/08/17 Time of Evaluation: 12:08 - Subjective Subjective: The patient was seen in telemetry on rounds. She appears to be sitting up in bed and looks comfortable. She does have occasional cough during the examination. There is no dullness on chest percussion. Equal expansion. Breath sounds are fairly well heard bilaterally. Few residual sonorous and sibilant rhonchi are present in the expiratory phase continues to seem slightly prolonged. No audible wheezing. Few dry rales are heard in the lower lobes posteriorly. Heart sounds are well heard and the rhythm is regular. There is no dependent edema. No central or peripheral cyanosis. Her vital signs have remained stable and she continues to be afebrile. Serum IgE is recorded at over 900, but the specific rest profile is still pending. The patient does admit on questioning today that she had been in another hospital only 1 month prior to this admission and if question of recurrent infection is raised she would require treatment to cover nosocomial process. Presently she is receiving ceftriaxone alone. We'll begin long-acting beta agonist with inhaled corticosteroid and long- acting muscarinic agent. We'll continue to have when necessary beta adrenergic available. Objective - Vital Signs/Intake and Output Vital Signs (last 24 hours): Temp Pulse Resp BP Pulse Ox 97.7 F 79 20 115/75 93 L 09/08/17 08:19 09/08/17 08:19 09/08/17 08:19 09/08/17 08:19 09/08/17 08:19 - Medications Medications: Current Medications Albuterol/Ipratropium (Duoneb 3 Mg/0.5 Mg (3 Ml) Ud) 3 ml INH RQ4 PRN PRN Reason: Shortness of Breath Last Admin: 09/05/17 08:37 Dose: 3 ml Albuterol/Ipratropium (Duoneb 3 Mg/0.5 Mg (3 Ml) Ud) 3 ml INH RQID [facility] Stop: 09/08/17 23:59 Last Admin: 09/08/17 11:21 Dose: 3 ml Baclofen (Lioresal) 20 mg PO TID [facility] Last Admin: 09/08/17 08:54 Dose: 20 mg Enoxaparin Sodium (Lovenox) 40 mg SC DAILY [facility] PRN Reason: Protocol Ceftriaxone Sodium 1 gm/ (Sodium Chloride) 100 mls @ 100 mls/hr IVPB DAILY [facility] PRN Reason: Protocol Last Admin: 09/08/17 08:57 Dose: 100 mls/hr Ibuprofen (Motrin Tab) 400 mg PO Q6 PRN PRN Reason: Pain, moderate (4-7) Last Admin: 09/07/17 16:36 Dose: 400 mg Lactulose (Enulose) 10 gm PO DAILY PRN PRN Reason: Constipation Methylprednisolone (Solu-Medrol) 30 mg IVP Q8 [facility] Montelukast Sodium (Singulair) 10 mg PO HS [facility] Last Admin: 09/07/17 21:33 Dose: 10 mg Pantoprazole Sodium (Protonix Ec Tab) 40 mg PO DAILY [facility] Last Admin: 09/08/17 09:03 Dose: 40 mg Potassium Phos/Sodium Phos (Neutra-Phos) 1 pkt PO DAILY [facility] Last Admin: 09/08/17 08:55 Dose: 1 pkt Fluticasone/Salmeterol (Advair Diskus 250/50) 1 puff IH Q12H [facility] Last Admin: 09/05/17 00:21 Dose: 1 puff Tiotropium [place] (Spiriva) 18 mcg INH DAILY [facility] - Labs Labs: 09/06/17 09:50 09/06/17 09:50 PT 12.4 Seconds (9.8-13.1) 09/04/17 08:00 INR 1.1 (0.9-1.2) 09/04/17 08:00 APTT 30.8 Seconds (25.6-37.1) 09/04/17 08:00 Assessment and Plan (1) Asthma exacerbation Status: Acute
--- NOTE | 2017-09-08 12:22 | CP.PCM.PN ---
Subjective - Date & Time of Evaluation Date of Evaluation: 09/08/17 Time of Evaluation: 12:24 - Subjective Subjective: Still with dyspnea on minimal exertion Peak expiratory flow rate less than 25% of predicted before treatment Peak expiratory flow rate less than 40% of predicted after treatment History of intubation. Present on steroid Will check for secondary cause of dyspnea. Continue present rx Patient with severe MS and de conditioning when stable will need PT Objective - Vital Signs/Intake and Output Vital Signs (last 24 hours): Temp Pulse Resp BP Pulse Ox 97.7 F 79 20 115/75 93 L 09/08/17 08:19 09/08/17 08:19 09/08/17 08:19 09/08/17 08:19 09/08/17 08:19 - Medications Medications: Current Medications Albuterol/Ipratropium (Duoneb 3 Mg/0.5 Mg (3 Ml) Ud) 3 ml INH RQ4 PRN PRN Reason: Shortness of Breath Last Admin: 09/05/17 08:37 Dose: 3 ml Albuterol/Ipratropium (Duoneb 3 Mg/0.5 Mg (3 Ml) Ud) 3 ml INH RQID [facility] Stop: 09/08/17 23:59 Last Admin: 09/08/17 11:21 Dose: 3 ml Baclofen (Lioresal) 20 mg PO TID [facility] Last Admin: 09/08/17 08:54 Dose: 20 mg Enoxaparin Sodium (Lovenox) 40 mg SC DAILY [facility] PRN Reason: Protocol Ceftriaxone Sodium 1 gm/ (Sodium Chloride) 100 mls @ 100 mls/hr IVPB DAILY [facility] PRN Reason: Protocol Last Admin: 09/08/17 08:57 Dose: 100 mls/hr Ibuprofen (Motrin Tab) 400 mg PO Q6 PRN PRN Reason: Pain, moderate (4-7) Last Admin: 09/07/17 16:36 Dose: 400 mg Lactulose (Enulose) 10 gm PO DAILY PRN PRN Reason: Constipation Methylprednisolone (Solu-Medrol) 30 mg IVP Q8 [facility] Montelukast Sodium (Singulair) 10 mg PO HS [facility] Last Admin: 09/07/17 21:33 Dose: 10 mg Pantoprazole Sodium (Protonix Ec Tab) 40 mg PO DAILY [facility] Last Admin: 09/08/17 09:03 Dose: 40 mg Potassium Phos/Sodium Phos (Neutra-Phos) 1 pkt PO DAILY [facility] Last Admin: 09/08/17 08:55 Dose: 1 pkt Fluticasone/Salmeterol (Advair Diskus 250/50) 1 puff IH Q12H [facility] Last Admin: 09/05/17 00:21 Dose: 1 puff Tiotropium [place] (Spiriva) 18 mcg INH DAILY [facility] - Labs Labs: 09/06/17 09:50 09/06/17 09:50 PT 12.4 Seconds (9.8-13.1) 09/04/17 08:00 INR 1.1 (0.9-1.2) 09/04/17 08:00 APTT 30.8 Seconds (25.6-37.1) 09/04/17 08:00 - Constitutional Appears: Chronically Ill - Head Exam Head Exam: ATRAUMATIC, NORMAL INSPECTION, NORMOCEPHALIC - Eye Exam Eye Exam: Normal appearance - ENT Exam ENT Exam: Mucous Membranes Moist - Neck Exam Neck Exam: Full ROM - Respiratory Exam Respiratory Exam: Decreased Breath Sounds, Rhonchi, Wheezes - Cardiovascular Exam Cardiovascular Exam: REGULAR RHYTHM, +S1, +S2 - GI/Abdominal Exam GI & Abdominal Exam: Soft, Normal Bowel Sounds - Extremities Exam Extremities Exam: Normal Inspection - Neurological Exam Neurological Exam: Alert, Awake, Oriented x3 - Psychiatric Exam Psychiatric exam: Normal Affect - Skin Skin Exam: Normal Color Assessment and Plan (1) Hypoxia Status: Acute (2) Multiple sclerosis Status: Chronic (3) Asthma attack Status: Acute (4) Debility Status: Chronic (5) Multiple sclerosis exacerbation Status: Acute (6) Asthma, severe persistent Status: Acute - Assessment and Plan (Free Text) Plan: As above
[2017-09-08 13:42] LABS: D.FARINAE (D2) IGE 0.12 kU/L (<0.10); MOUSE URINE PROTEINS (e72) IgE 0.31 kU/L (<0.10)
[2017-09-08 15:13] LABS: A.TENUIS(M6)IGE <0.10 kU/L (<0.10); MAPLE (BOX ELDER) (T1)IGE <0.10 kU/L (<0.10); OAK (T7) IGE <0.10 kU/L (<0.10); P.NOTATUM (M1) IGE <0.10 kU/L (<0.10)
[2017-09-08] MEDS: Enoxaparin 40 mg Syringe SC SCH (16:49)
--- NOTE | 2017-09-08 17:03 | NM ---
COMPARISON: Comparison is made to chest x-ray done on 09/05/2017 TECHNIQUE: 45 mCi technetium 99-m technetium 99 m DTPA 5.0 MCI technetium 99-m MAA administered intravenously. FINDINGS: VENTILATION COMPONENT: Markedly heterogeneous ventilation noted PERFUSION COMPONENT: Nonsegmental foci of matching perfusion defect also noted in the lungs right more than left. IMPRESSION: Suboptimal study. Lowprobability ventilation perfusion scan for pulmonary embolism. Heterogeneous ventilation. Matching nonsegmental perfusion defects.
[2017-09-09] MEDS: MethylPREDNISolone 40 mg Vial IVP SCH ×3 (01:05→17:48)
[2017-09-09] MEDS: Fluticasone-Salmeterol 250-50mcg Diskus IH SCH ×3 (01:05→21:00)
[2017-09-09] MEDS: Albuterol-Ipratrop 3 mg / 0.5 (3 ml) UD INH PRN (08:09)
[2017-09-09 08:56] LABS: BASO % 0.1 % (0.0-2.0); EOS % 0.3 % (0.0-4.0); HEMATOCRIT 40.6 % (34.0-47.0); LYMPH # 1.5 K/uL (1.0-4.3); LYMPH % 12.2 % (20.0-40.0); MEAN CELL VOLUME 78.5 fl (81.0-99.0); MEAN CORPUSCULAR HEMOGLOBIN 25.5 pg (27.0-31.0); MEAN CORPUSCULAR HGB CONC 32.5 g/dL (33.0-37.0); MEAN PLATELET VOLUME 8.3 fl (7.2-11.7); MONO # 0.6 K/uL (0.0-0.8); MONO % 4.8 % (0.0-10.0); NEUT # 10.1 K/uL (1.8-7.0); NEUT % 82.6 % (50.0-75.0); NRBC % 0.1 % (0.0-0.0); WHITE BLOOD COUNT 12.2 K/uL (4.8-10.8)
[2017-09-09] MEDS: Enoxaparin 40 mg Syringe SC SCH (09:05)
[2017-09-09 09:07] LABS: ALB/GLOB RATIO 1.2 (1.0-2.1); ALKALINE PHOSPHATASE 79 U/L (38-126); ALT/SGPT 46 U/L (9-52); AST/SGOT 21 U/L (14-36); BILIRUBIN,TOTAL 0.4 mg/dl (0.2-1.3); BLOOD UREA NITROGEN 22 mg/dl (7-17); CALCIUM 8.8 mg/dL (8.4-10.2); CARBON DIOXIDE 24 mmol/L (22-30); CHLORIDE 108 mmol/L (98-107); GFR AFRICAN-AMERICAN > 60; GLUCOSE,RANDOM 99 mg/dL (65-105); SODIUM 144 mmol/l (132-148); TOTAL PROTEIN 7.8 G/DL (6.3-8.2)
[2017-09-09] MEDS: Potassium & Sodium Phosphate PO SCH (09:07)
[2017-09-09] MEDS: Pantoprazole 40 mg EC Tab PO SCH (09:08)
[2017-09-09] MEDS: Tiotropium 18 mcg Cap For Inhalation INH SCH (09:14)
[2017-09-09 09:37] LABS: THYROID STIMULATING HORMONE 0.55 mIU/ML (0.46-4.68)
--- NOTE | 2017-09-09 10:43 | RAD ---
HISTORY: pneumonia COMPARISON: Comparison chest 09/05/2017 TECHNIQUE: Chest PA and lateral FINDINGS: LUNGS: Findings most likely represent the right middle lobe atelectasis; rule out developing infiltrate. PLEURA: No significant pleural effusion identified. No pneumothorax apparent. CARDIOVASCULAR: Normal. OSSEOUS STRUCTURES: No significant abnormalities. VISUALIZED UPPER ABDOMEN: Normal. OTHER FINDINGS: None. IMPRESSION: Middle lobe atelectasis. Rule out developing infiltrate.
[2017-09-09] MEDS: Fluconazole IV 200mg/100 ml NS 100 ML IVPB SCH (11:30)
--- NOTE | 2017-09-09 18:02 | CP.PCM.PN ---
Subjective - Date & Time of Evaluation Date of Evaluation: 09/09/17 Time of Evaluation: 18:05 - Subjective Subjective: Culture positive for yeast and gram neg rods Peak flow not significant improvement Patient started on diflucan Objective - Vital Signs/Intake and Output Vital Signs (last 24 hours): Temp Pulse Resp BP Pulse Ox 97.8 F 79 20 128/75 96 09/09/17 16:54 09/09/17 16:54 09/09/17 16:54 09/09/17 16:54 09/09/17 16:54 - Medications Medications: Current Medications Albuterol/Ipratropium (Duoneb 3 Mg/0.5 Mg (3 Ml) Ud) 3 ml INH RQ4 PRN PRN Reason: Shortness of Breath Last Admin: 09/09/17 08:09 Dose: 3 ml Baclofen (Lioresal) 20 mg PO TID [facility] Last Admin: 09/09/17 17:42 Dose: 20 mg Enoxaparin Sodium (Lovenox) 40 mg SC DAILY [facility] PRN Reason: Protocol Last Admin: 09/09/17 09:05 Dose: 40 mg Fluconazole (Diflucan Iv 200 Mg/100 Ml Ns) 100 mls @ 100 mls/hr IVPB DAILY [facility] Last Admin: 09/09/17 11:30 Dose: 100 mls/hr Ceftriaxone Sodium (Rocephin Iv 1 Gm Duplex) 50 mls @ 50 mls/hr IVPB DAILY [facility] PRN Reason: Protocol Ibuprofen (Motrin Tab) 400 mg PO Q6 PRN PRN Reason: Pain, moderate (4-7) Last Admin: 09/07/17 16:36 Dose: 400 mg Lactulose (Enulose) 10 gm PO DAILY PRN PRN Reason: Constipation Methylprednisolone (Solu-Medrol) 30 mg IVP Q8 [facility] Last Admin: 09/09/17 17:48 Dose: 30 mg Montelukast Sodium (Singulair) 10 mg PO HS [facility] Last Admin: 09/08/17 21:38 Dose: 10 mg Pantoprazole Sodium (Protonix Ec Tab) 40 mg PO DAILY [facility] Last Admin: 09/09/17 09:08 Dose: 40 mg Potassium Phos/Sodium Phos (Neutra-Phos) 1 pkt PO DAILY [facility] Last Admin: 09/09/17 09:07 Dose: 1 pkt Fluticasone/Salmeterol (Advair Diskus 250/50) 1 puff IH Q12 [facility] Last Admin: 09/09/17 09:01 Dose: 1 puff Tiotropium [place] (Spiriva) 18 mcg INH DAILY [facility] Last Admin: 09/09/17 09:14 Dose: 18 mcg - Labs Labs: 09/09/17 08:15 09/09/17 08:15 PT 12.4 Seconds (9.8-13.1) 09/04/17 08:00 INR 1.1 (0.9-1.2) 09/04/17 08:00 APTT 30.8 Seconds (25.6-37.1) 09/04/17 08:00 - Constitutional Appears: Chronically Ill - Head Exam Head Exam: ATRAUMATIC, NORMAL INSPECTION, NORMOCEPHALIC - Eye Exam Eye Exam: Normal appearance - Neck Exam Neck Exam: Full ROM - Respiratory Exam Respiratory Exam: Decreased Breath Sounds, Wheezes - Cardiovascular Exam Cardiovascular Exam: REGULAR RHYTHM, +S1, +S2 - GI/Abdominal Exam GI & Abdominal Exam: Soft, Normal Bowel Sounds - Neurological Exam Neurological Exam: Alert, Awake, CN II-XII Intact, Oriented x3 Assessment and Plan (1) Hypoxia Status: Acute (2) Multiple sclerosis Status: Chronic (3) Asthma attack Status: Acute (4) Debility Status: Chronic (5) Multiple sclerosis exacerbation Status: Acute (6) Asthma, severe persistent Status: Acute - Assessment and Plan (Free Text) Plan: Started on diflucan IV Will follow clinically
[2017-09-10] MEDS: MethylPREDNISolone 40 mg Vial IVP SCH ×3 (01:00→16:22)
[2017-09-10] MEDS: Enoxaparin 40 mg Syringe SC SCH (08:08)
[2017-09-10] MEDS: Tiotropium 18 mcg Cap For Inhalation INH SCH (08:09)
[2017-09-10] MEDS: Pantoprazole 40 mg EC Tab PO SCH (08:09)
[2017-09-10] MEDS: Potassium & Sodium Phosphate PO SCH (08:10)
[2017-09-10] MEDS: Fluticasone-Salmeterol 250-50mcg Diskus IH SCH ×2 (08:10→21:42)
[2017-09-10] MEDS: cefTRIAXone IV 1 gm in Dextros 50 ML IVPB SCH (08:14)
[2017-09-10] MEDS: Fluconazole IV 200mg/100 ml NS 100 ML IVPB SCH (08:14)
--- NOTE | 2017-09-10 13:50 | CP.PCM.CON ---
History of Present Illness - History of Present Illness History of Present Illness: 42 YO FEMALE WITH HX OF MS AND ASTHMA ADMITTED WITH FAILURE OF OUT PT RX FOR ASTHMA REFERRED FOR ID EVAL FOR POSITIVE CULTURES IV ANTIBIOTICS IN PROGRESS DENIES FEVER CHILLS + COUGH AND SOB NO HEMOPTYSIS \ DENIES HX OF TB IN PAST Review of Systems - Constitutional Constitutional: As Per HPI - EENT Eyes: absent: As Per HPI, Blind Spots, Blurred Vision, Change in Vision, Decreased Night Vision, Diplopia, Discharge, Dry Eye, Exophthalmos, Floaters, Irritation, Itchy Eyes, Loss of Peripheral Vision, Pain, Photophobia, Requires Corrective Lenses, Sees Flashes, Spots in Vision, Tunnel Vision, Other Visual Disturbances, Loss of Vision, Other Ears: absent: As Per HPI, Decreased Hearing, Ear Discharge, Ear Pain, Tinnitus, Abnormal Hearing, Disequilibrium, Dizziness, Other Nose/Mouth/Throat: absent: As Per HPI, Epistaxis, Nasal Congestion, Nasal Discharge, Nasal Obstruction, Nasal Trauma, Nose Pain, Post Nasal Drip, Sinus Pain, Sinus Pressure, Bleeding Gums, Change in Voice, Dental Pain, Dry Mouth, Dysphagia, Halitosis, Hoarsness, Lip Swelling, Mouth Lesions, Mouth Pain, Odynophagia, Sore Throat, Throat Swelling, Tongue Swelling, Facial Pain, Neck Pain, Neck Mass, Other - Breasts Breasts: absent: As Per HPI, Change in Shape, Mass, Pain, Nipple Discharge, Nipple Inversion, Skin Changes, Swelling, Other - Cardiovascular Cardiovascular: absent: As Per HPI, Acrocyanosis, Chest Pain, Chest Pain at Rest , Chest Pain with Activity, Claudication, Diaphoresis, Dyspnea, Dyspnea on Exertion, Edema, Irregular Heart Rhythm, Pain Radiating to Arm/Neck/Jaw, Leg Edema, Leg Ulcers, Lightheadedness, Orthopnea, Palpitations, Paroxysmal Nocturnal Dyspnea, Pedal Edema, Radiating Pain, Rapid Heart Rate, Slow Heart Rate, Syncope, Other - Respiratory Respiratory: As Per HPI, Cough, Dyspnea. absent: Hemoptysis - Gastrointestinal Gastrointestinal: absent: As Per HPI, Abdominal Pain, Belching, Bloating, Change in Bowel Habits, Change in Stool Character, Coffee Ground Emesis, Constipation, Cramping, Diarrhea, Dyspepsia, Dysphagia, Early Satiety, Excessive Flatus, Fecal Incontinence, Heartburn, Hematemesis, Hematochezia, Loose Stools, Melena, Nausea, Odynophagia, Temesmus, Vomiting, Other - Genitourinary Genitourinary: absent: As Per HPI, Change in Urinary Stream, Difficulty Urinating, Dysuria, Flank Pain, Hematuria, Pyuria, Nocturia, Urinary Incontinence, Urinary Frequency, Urinary Hesitance, Urinary Urgency, Voiding Freq/Small Amts, Freq UTI, Hx Renal/Bladder Calculi, Hx /Renal Surgery, Bladder Distension, Other - Reproductive: Female Reproductive:Female: absent: As Per HPI, Amenorrhea, Amenorrhea/ Control, Currently Menstual, Cycle <21 Days, Cycle >35 Days, Cycle Variable, Menses 1-7 Days, Menses >/= 8 Days, Menses Variable, Cycle > 4 Weeks Between, No Menses for 6 Months, Heavy Menses, Light Menses, Normal Menses, Spotting Between Cycles , S/P Hysterectomy, Menopausal, Post Menopausal, Premenarche, Abnormal Vaginal Bleeding, Dysmenorrhea, Dyspareunia, Genital Lesions, Genital Pruritis, Pelvic Pain, Prolapse Symptoms, Sexual Dysfunction, Vaginal Discharge, Vaginal Dryness , Vaginal Odor, Vaginal Pruritis, Other - Menstruation Menstruation: absent: As Per HPI, Amenorrhea, Amenorrhea/ Control, Currently Menstual, Cycle <21 Days, Cycle >35 Days, Cycle Variable, Menses 1-7 Days, Menses >/= 8 Days, Menses Variable, Cycle > 4 Weeks Between, No Menses for 6 Months, Heavy Menses, Light Menses, Normal Menses, Spotting Between Cycles , S/P Hysterectomy, Menopausal, Post Menopausal, Premenarche, Abnormal Vaginal Bleeding, Dysmenorrhea, Other - Musculoskeletal Musculoskeletal: absent: As Per HPI, Abnormal Gait, Arthralgias, Atrophy, Back Pain, Deformity, Joint Swelling, Limited Range of Motion, Loss of Height, Muscle Cramps, Muscle Weakness, Myalgias, Neck Pain, Numbness, Radiating Pain into Limb, Stiffness, Tingling, Other - Integumentary Integumentary: absent: As Per HPI, Acne, Alopecia, Bleeding Lesions, Change in Hair, Change in Nails, Change in Pigmentation, Changing Lesions, Dry Skin, Erythema, Furuncle, Hirsutism, Lesions, New Lesions, Non-Healing Lesions, Photosensitivity, Pruritus, Rash, Skin Pain, Skin Ulcer, Sores, Striae, Swelling , Unusual Bruising, Wounds, Jaundice, Other - Neurological Neurological: As Per HPI - Psychiatric Psychiatric: absent: As Per HPI, Abnormal Sleep Pattern, Anhedonia, Anxiety, Auditory Hallucinations, Behavioral Changes, Change in Appetite, Change in Libido, Confusion, Depression, Difficulty Concentrating, Hallucinations, Homicidal Ideation, Hopelessness, Irritability, Memory Loss, Mood Swings, Panic Attacks, Paranoia, Suicidal Ideation, Visual Hallucinations, Tactile Hallucinations, Other - Endocrine Endocrine: absent: As Per HPI, Change in Body Appearance, Change in Libido, Cold Intolorance, Deepening of Voice, Excessive Sweating, Fatigue, Flushing, Heat Intolorance, Increase in Ring/Shoe/Hat Size, Palpitations, Polydipsia, Polyphagia, Polyuria, Other - Hematologic/Lymphatic Hematologic: absent: As Per HPI, Easy Bleeding, Easy Bruising, Lymphadenopathy, Other Past Patient History - Past Medical History & Family History Past Medical History?: Yes - Past Social History Smoking Status: Light Smoker < 10 Cigarettes Daily - PULMONARY Hx Asthma: Yes - NEUROLOGICAL Hx Migraine: Yes Hx Multiple Sclerosis: Yes - MUSCULOSKELETAL/RHEUMATOLOGICAL Hx Falls: No - PSYCHIATRIC Hx Substance Use: Yes - SURGICAL HISTORY Hx Cholecystectomy: Yes - ANESTHESIA Hx Anesthesia: Yes Hx Anesthesia Reactions: No Meds Allergies/Adverse Reactions: Allergies Allergy/AdvReac Type Severity Reaction Status Date / Time iodine Allergy RASH Verified 09/04/17 07:15 - Medications Medications: Current Medications Albuterol/Ipratropium (Duoneb 3 Mg/0.5 Mg (3 Ml) Ud) 3 ml INH RQ4 PRN PRN Reason: Shortness of Breath Last Admin: 09/09/17 08:09 Dose: 3 ml Baclofen (Lioresal) 20 mg PO TID [facility] Last Admin: 09/10/17 12:28 Dose: 20 mg Enoxaparin Sodium (Lovenox) 40 mg SC DAILY [facility] PRN Reason: Protocol Last Admin: 09/10/17 08:08 Dose: 40 mg Fluconazole (Diflucan Iv 200 Mg/100 Ml Ns) 100 mls @ 100 mls/hr IVPB DAILY [facility] Last Admin: 09/10/17 08:14 Dose: 100 mls/hr Ceftriaxone Sodium (Rocephin Iv 1 Gm Duplex) 50 mls @ 50 mls/hr IVPB DAILY [facility] PRN Reason: Protocol Last Admin: 09/10/17 08:14 Dose: 50 mls/hr Ibuprofen (Motrin Tab) 400 mg PO Q6 PRN PRN Reason: Pain, moderate (4-7) Last Admin: 09/09/17 20:56 Dose: 400 mg Lactulose (Enulose) 10 gm PO DAILY PRN PRN Reason: Constipation Methylprednisolone (Solu-Medrol) 30 mg IVP Q8 [facility] Last Admin: 09/10/17 08:16 Dose: 30 mg Montelukast Sodium (Singulair) 10 mg PO HS [facility] Last Admin: 09/09/17 21:09 Dose: 10 mg Pantoprazole Sodium (Protonix Ec Tab) 40 mg PO DAILY [facility] Last Admin: 09/10/17 08:09 Dose: 40 mg Potassium Phos/Sodium Phos (Neutra-Phos) 1 pkt PO DAILY [facility] Last Admin: 09/10/17 08:10 Dose: 1 pkt Fluticasone/Salmeterol (Advair Diskus 250/50) 1 puff IH Q12 [facility] Last Admin: 09/10/17 08:10 Dose: 1 puff Tiotropium [place] (Spiriva) 18 mcg INH DAILY [facility] Last Admin: 09/10/17 08:09 Dose: 18 mcg Physical Exam - Constitutional Appears: Non-toxic, Chronically Ill - Head Exam Head Exam: ATRAUMATIC, NORMAL INSPECTION, NORMOCEPHALIC - Eye Exam Eye Exam: EOMI, PERRL. absent: Scleral icterus - ENT Exam ENT Exam: Mucous Membranes Dry, Normal External Ear Exam. absent: Normal Oropharynx Additional comments: VERY POOR DENTITION - Neck Exam Neck exam: Negative for: Lymphadenopathy, Thyromegaly - Respiratory Exam Respiratory Exam: Decreased Breath Sounds, Rhonchi - Cardiovascular Exam Cardiovascular Exam: REGULAR RHYTHM, +S1, +S2 - GI/Abdominal Exam GI & Abdominal Exam: Diminished Bowel Sounds, Distended, Soft. absent: Guarding , Rebound, Rigid, Tenderness - Rectal Exam Rectal Exam: Deferred - Exam Exam: NORMAL INSPECTION - Extremities Exam Extremities exam: Positive for: pedal pulses present. Negative for: calf tenderness, pedal edema, tenderness - Back Exam Back exam: absent: CVA tenderness (L), CVA tenderness (R), paraspinal tenderness - Neurological Exam Neurological exam: Alert, CN II-XII Intact, Oriented x3, Reflexes Normal - Psychiatric Exam Psychiatric exam: Depressed - Skin Skin Exam: Dry, Intact Results - Vital Signs Recent Vital Signs: Last Vital Signs Temp 97.1 F L 09/10/17 12:39 Pulse 99 H 09/10/17 12:39 Resp 20 09/10/17 12:39 BP 125/79 09/10/17 12:39 Pulse Ox 93 L 09/10/17 12:39 - Labs Result Diagrams: 09/09/17 08:15 09/09/17 08:15 Assessment & Plan (1) Asthma attack Status: Acute (2) Asthma exacerbation Status: Acute Priority: High (3) Asthma, severe persistent Status: Acute (4) Hypoxia Status: Acute (5) Multiple sclerosis exacerbation Status: Acute (6) Debility Status: Chronic (7) Multiple sclerosis Status: Chronic - Assessment and Plan (Free Text) Assessment: CONT IV ANTIBIOTICS AND CAREFUL CLOSE MONITORING HIGH RISK FOR INTUBATION AND MECHANICAL VENTILATION AWAIT FINAL CULTURE REPORTS
--- NOTE | 2017-09-10 19:25 | CP.PCM.PN ---
Subjective - Date & Time of Evaluation Date of Evaluation: 09/10/17 Time of Evaluation: 19:24 - Subjective Subjective: No significant chances Will follow clinically Objective - Vital Signs/Intake and Output Vital Signs (last 24 hours): Temp Pulse Resp BP Pulse Ox 98 F 79 20 122/79 94 L 09/10/17 18:25 09/10/17 18:25 09/10/17 18:25 09/10/17 18:25 09/10/17 18:25 Intake and Output: 09/10/17 09/10/17 11:59 23:59 Intake Total 1230 Balance 1230 - Medications Medications: Current Medications Albuterol/Ipratropium (Duoneb 3 Mg/0.5 Mg (3 Ml) Ud) 3 ml INH RQ4 PRN PRN Reason: Shortness of Breath Last Admin: 09/09/17 08:09 Dose: 3 ml Baclofen (Lioresal) 20 mg PO TID [facility] Last Admin: 09/10/17 16:21 Dose: 20 mg Enoxaparin Sodium (Lovenox) 40 mg SC DAILY [facility] PRN Reason: Protocol Last Admin: 09/10/17 08:08 Dose: 40 mg Fluconazole (Diflucan Iv 200 Mg/100 Ml Ns) 100 mls @ 100 mls/hr IVPB DAILY [facility] Last Admin: 09/10/17 08:14 Dose: 100 mls/hr Ceftriaxone Sodium (Rocephin Iv 1 Gm Duplex) 50 mls @ 50 mls/hr IVPB DAILY [facility] PRN Reason: Protocol Last Admin: 09/10/17 08:14 Dose: 50 mls/hr Ibuprofen (Motrin Tab) 400 mg PO Q6 PRN PRN Reason: Pain, moderate (4-7) Last Admin: 09/09/17 20:56 Dose: 400 mg Lactulose (Enulose) 10 gm PO DAILY [facility] PRN Reason: Constipation Methylprednisolone (Solu-Medrol) 30 mg IVP Q8 [facility] Last Admin: 09/10/17 16:22 Dose: 30 mg Montelukast Sodium (Singulair) 10 mg PO HS [facility] Last Admin: 09/09/17 21:09 Dose: 10 mg Pantoprazole Sodium (Protonix Ec Tab) 40 mg PO DAILY [facility] Last Admin: 09/10/17 08:09 Dose: 40 mg Potassium Phos/Sodium Phos (Neutra-Phos) 1 pkt PO DAILY [facility] Last Admin: 09/10/17 08:10 Dose: 1 pkt Fluticasone/Salmeterol (Advair Diskus 250/50) 1 puff IH Q12 [facility] Last Admin: 09/10/17 08:10 Dose: 1 puff Tiotropium [place] (Spiriva) 18 mcg INH DAILY [facility] Last Admin: 09/10/17 08:09 Dose: 18 mcg - Labs Labs: 09/09/17 08:15 09/09/17 08:15 PT 12.4 Seconds (9.8-13.1) 09/04/17 08:00 INR 1.1 (0.9-1.2) 09/04/17 08:00 APTT 30.8 Seconds (25.6-37.1) 09/04/17 08:00 - Constitutional Appears: Chronically Ill - Head Exam Head Exam: ATRAUMATIC, NORMAL INSPECTION, NORMOCEPHALIC - Eye Exam Eye Exam: Normal appearance Pupil Exam: PERRL - ENT Exam ENT Exam: Mucous Membranes Moist - Neck Exam Neck Exam: Full ROM - Respiratory Exam Respiratory Exam: Chest Wall Tenderness, Decreased Breath Sounds, Wheezes - GI/Abdominal Exam GI & Abdominal Exam: Soft, Normal Bowel Sounds - Extremities Exam Extremities Exam: Normal Inspection - Neurological Exam Neurological Exam: Alert, CN II-XII Intact Assessment and Plan (1) Hypoxia Status: Acute (2) Multiple sclerosis Status: Chronic (3) Asthma attack Status: Acute (4) Debility Status: Chronic (5) Multiple sclerosis exacerbation Status: Acute (6) Asthma, severe persistent Status: Acute - Assessment and Plan (Free Text) Plan: Continue present rx
[2017-09-11] MEDS: MethylPREDNISolone 40 mg Vial IVP SCH ×3 (00:57→21:22)
[2017-09-11] MEDS: Fluticasone-Salmeterol 250-50mcg Diskus IH SCH ×2 (08:55→21:27)
[2017-09-11] MEDS: Fluconazole IV 200mg/100 ml NS 100 ML IVPB SCH (08:56)
[2017-09-11] MEDS: Enoxaparin 40 mg Syringe SC SCH (08:58)
[2017-09-11] MEDS: Potassium & Sodium Phosphate PO SCH (08:59)
[2017-09-11] MEDS: Pantoprazole 40 mg EC Tab PO SCH (08:59)
[2017-09-11] MEDS: cefTRIAXone IV 1 gm in Dextros 50 ML IVPB SCH (09:00)
[2017-09-11] MEDS: Tiotropium 18 mcg Cap For Inhalation INH SCH (09:02)
--- NOTE | 2017-09-11 11:13 | CP.PCM.PN ---
Subjective - Date & Time of Evaluation Date of Evaluation: 09/11/17 Time of Evaluation: 11:17 - Subjective Subjective: Patient with Asthma and chronic obstructive lung disease (COPD) both conditions are inflammatory associated with structural lung remodeling inappropriate to the maintenance of normal lung function. The patient is severally allergic to cats. She lives in an environment with constant injury for her respiratory system. She stated that she will not change her incremental condition. Her condition is aggravated by a yeast infection. Will continue iv steroid x 1 day and that will change to oral. Continue iv anti bx x 1 week. She in need of PT to increase the strength of the respiratory muscle that is compromise by the severe advance MS. The patient is aware of her condition. Objective - Vital Signs/Intake and Output Vital Signs (last 24 hours): Temp Pulse Resp BP Pulse Ox 97.3 F L 74 20 116/82 90 L 09/11/17 08:45 09/11/17 08:45 09/11/17 08:45 09/11/17 08:45 09/11/17 08:45 Intake and Output: 09/10/17 09/11/17 23:59 11:59 Intake Total 1230 Balance 1230 - Medications Medications: Current Medications Albuterol/Ipratropium (Duoneb 3 Mg/0.5 Mg (3 Ml) Ud) 3 ml INH RQ4 PRN PRN Reason: Shortness of Breath Last Admin: 09/09/17 08:09 Dose: 3 ml Baclofen (Lioresal) 20 mg PO TID [facility] Last Admin: 09/11/17 08:58 Dose: 20 mg Enoxaparin Sodium (Lovenox) 40 mg SC DAILY [facility] PRN Reason: Protocol Last Admin: 09/11/17 08:58 Dose: 40 mg Fluconazole (Diflucan Iv 200 Mg/100 Ml Ns) 100 mls @ 100 mls/hr IVPB DAILY [facility] Last Admin: 09/11/17 08:56 Dose: 100 mls/hr Ceftriaxone Sodium (Rocephin Iv 1 Gm Duplex) 50 mls @ 50 mls/hr IVPB DAILY [facility] PRN Reason: Protocol Last Admin: 09/11/17 09:00 Dose: 50 mls/hr Ibuprofen (Motrin Tab) 400 mg PO Q6 PRN PRN Reason: Pain, moderate (4-7) Last Admin: 09/11/17 09:03 Dose: 400 mg Lactulose (Enulose) 10 gm PO DAILY PRN PRN Reason: Constipation Methylprednisolone (Solu-Medrol) 30 mg IVP Q8 [facility] Last Admin: 09/11/17 09:00 Dose: 30 mg Montelukast Sodium (Singulair) 10 mg PO HS [facility] Last Admin: 09/10/17 21:43 Dose: 10 mg Pantoprazole Sodium (Protonix Ec Tab) 40 mg PO DAILY [facility] Last Admin: 09/11/17 08:59 Dose: 40 mg Potassium Phos/Sodium Phos (Neutra-Phos) 1 pkt PO DAILY [facility] Last Admin: 09/11/17 08:59 Dose: 1 pkt Fluticasone/Salmeterol (Advair Diskus 250/50) 1 puff IH Q12 [facility] Last Admin: 09/11/17 08:55 Dose: 1 puff Tiotropium [place] (Spiriva) 18 mcg INH DAILY [facility] Last Admin: 09/11/17 09:02 Dose: 18 mcg - Labs Labs: 09/09/17 08:15 09/09/17 08:15 PT 12.4 Seconds (9.8-13.1) 09/04/17 08:00 INR 1.1 (0.9-1.2) 09/04/17 08:00 APTT 30.8 Seconds (25.6-37.1) 09/04/17 08:00 - Constitutional Appears: Non-toxic - Head Exam Head Exam: ATRAUMATIC, NORMAL INSPECTION, NORMOCEPHALIC - Eye Exam Eye Exam: Normal appearance - ENT Exam ENT Exam: Mucous Membranes Moist - Neck Exam Neck Exam: Full ROM - Respiratory Exam Respiratory Exam: Decreased Breath Sounds, Wheezes - Cardiovascular Exam Cardiovascular Exam: REGULAR RHYTHM, +S1, +S2 - GI/Abdominal Exam GI & Abdominal Exam: Soft, Normal Bowel Sounds - Extremities Exam Extremities Exam: Normal Inspection - Neurological Exam Neurological Exam: Alert, Awake, CN II-XII Intact, Oriented x3 - Psychiatric Exam Psychiatric exam: Normal Affect - Skin Skin Exam: Normal Color Assessment and Plan (1) Hypoxia Status: Acute (2) Multiple sclerosis Status: Chronic (3) Asthma attack Status: Acute (4) Debility Status: Chronic (5) Multiple sclerosis exacerbation Status: Acute (6) Asthma, severe persistent Status: Acute - Assessment and Plan (Free Text) Plan: Continue present rx.
--- NOTE | 2017-09-11 11:16 | CP.PCM.PN ---
Subjective - Date & Time of Evaluation Date of Evaluation: 09/11/17 Time of Evaluation: 11:16 - Subjective Subjective: Gradual improvement noted. Peak flow requested, >250LPM today. No further rales or wheezes heard. No cough or SOB at rest. Started on PO prednisone with intent to reduce dose by 5MG every 48-72hrs as tolerated. Objective - Vital Signs/Intake and Output Vital Signs (last 24 hours): Temp Pulse Resp BP Pulse Ox 97.3 F L 74 20 116/82 90 L 09/11/17 08:45 09/11/17 08:45 09/11/17 08:45 09/11/17 08:45 09/11/17 08:45 Intake and Output: 09/10/17 09/11/17 23:59 11:59 Intake Total 1230 Balance 1230 - Medications Medications: Current Medications Albuterol/Ipratropium (Duoneb 3 Mg/0.5 Mg (3 Ml) Ud) 3 ml INH RQ4 PRN PRN Reason: Shortness of Breath Last Admin: 09/09/17 08:09 Dose: 3 ml Baclofen (Lioresal) 20 mg PO TID [facility] Last Admin: 09/11/17 08:58 Dose: 20 mg Enoxaparin Sodium (Lovenox) 40 mg SC DAILY [facility] PRN Reason: Protocol Last Admin: 09/11/17 08:58 Dose: 40 mg Fluconazole (Diflucan Iv 200 Mg/100 Ml Ns) 100 mls @ 100 mls/hr IVPB DAILY [facility] Last Admin: 09/11/17 08:56 Dose: 100 mls/hr Ceftriaxone Sodium (Rocephin Iv 1 Gm Duplex) 50 mls @ 50 mls/hr IVPB DAILY [facility] PRN Reason: Protocol Last Admin: 09/11/17 09:00 Dose: 50 mls/hr Ibuprofen (Motrin Tab) 400 mg PO Q6 PRN PRN Reason: Pain, moderate (4-7) Last Admin: 09/11/17 09:03 Dose: 400 mg Lactulose (Enulose) 10 gm PO DAILY [facility]N PRN Reason: Constipation Methylprednisolone (Solu-Medrol) 30 mg IVP Q8 [facility] Last Admin: 09/11/17 09:00 Dose: 30 mg Montelukast Sodium (Singulair) 10 mg PO HS [facility] Last Admin: 09/10/17 21:43 Dose: 10 mg Pantoprazole Sodium (Protonix Ec Tab) 40 mg PO DAILY [facility] Last Admin: 09/11/17 08:59 Dose: 40 mg Potassium Phos/Sodium Phos (Neutra-Phos) 1 pkt PO DAILY [facility] Last Admin: 09/11/17 08:59 Dose: 1 pkt Fluticasone/Salmeterol (Advair Diskus 250/50) 1 puff IH Q12 [facility] Last Admin: 09/11/17 08:55 Dose: 1 puff Tiotropium [place] (Spiriva) 18 mcg INH DAILY [facility] Last Admin: 09/11/17 09:02 Dose: 18 mcg - Labs Labs: 09/09/17 08:15 09/09/17 08:15 PT 12.4 Seconds (9.8-13.1) 09/04/17 08:00 INR 1.1 (0.9-1.2) 09/04/17 08:00 APTT 30.8 Seconds (25.6-37.1) 09/04/17 08:00 Assessment and Plan (1) Asthma exacerbation Status: Acute
--- NOTE | 2017-09-11 13:43 | RAD ---
PROCEDURE: Radiographs of the Chest and Left Ribs. HISTORY: Pain. No history of recent/ related trauma provided COMPARISON: 09/09/2017. TECHNIQUE: Frontal radiograph of the chest and multiple oblique radiographs of the left ribs were obtained. FINDINGS: LEFT RIBS: No fracture or focal lesion visualized. LUNGS: Clear. PLEURA: No pneumothorax or pleural fluid. CARDIOVASCULAR: Normal sized heart. No pulmonary vascular congestion. OTHER FINDINGS: None. IMPRESSION: Unremarkable radiographs of the chest and left ribs. No left rib fracture.
--- NOTE | 2017-09-11 13:44 | CP.PCM.PN ---
Subjective - Date & Time of Evaluation Date of Evaluation: 09/11/17 Time of Evaluation: 08:00 - Subjective Subjective: PT WITH CHRONIC MS AND ASTHMA RX IN PROGRESS PROGNOSIS GUARDED URINE CULTURES PENDING Objective - Vital Signs/Intake and Output Vital Signs (last 24 hours): Temp Pulse Resp BP Pulse Ox 97.3 F L 74 20 116/82 90 L 09/11/17 08:45 09/11/17 08:45 09/11/17 08:45 09/11/17 08:45 09/11/17 08:45 - Medications Medications: Current Medications Albuterol/Ipratropium (Duoneb 3 Mg/0.5 Mg (3 Ml) Ud) 3 ml INH RQ4 PRN PRN Reason: Shortness of Breath Last Admin: 09/09/17 08:09 Dose: 3 ml Baclofen (Lioresal) 20 mg PO TID [facility] Last Admin: 09/11/17 08:58 Dose: 20 mg Enoxaparin Sodium (Lovenox) 40 mg SC DAILY [facility] PRN Reason: Protocol Last Admin: 09/11/17 08:58 Dose: 40 mg Fluconazole (Diflucan Iv 200 Mg/100 Ml Ns) 100 mls @ 100 mls/hr IVPB DAILY [facility] Last Admin: 09/11/17 08:56 Dose: 100 mls/hr Ceftriaxone Sodium (Rocephin Iv 1 Gm Duplex) 50 mls @ 50 mls/hr IVPB DAILY [facility] PRN Reason: Protocol Last Admin: 09/11/17 09:00 Dose: 50 mls/hr Ibuprofen (Motrin Tab) 400 mg PO Q6 PRN PRN Reason: Pain, moderate (4-7) Last Admin: 09/11/17 09:03 Dose: 400 mg Lactulose (Enulose) 10 gm PO DAILY PRN PRN Reason: Constipation Methylprednisolone (Solu-Medrol) 30 mg IVP Q8 [facility] Last Admin: 09/11/17 09:00 Dose: 30 mg Montelukast Sodium (Singulair) 10 mg PO HS [facility] Last Admin: 09/10/17 21:43 Dose: 10 mg Pantoprazole Sodium (Protonix Ec Tab) 40 mg PO DAILY [facility] Last Admin: 09/11/17 08:59 Dose: 40 mg Potassium Phos/Sodium Phos (Neutra-Phos) 1 pkt PO DAILY [facility] Last Admin: 09/11/17 08:59 Dose: 1 pkt Fluticasone/Salmeterol (Advair Diskus 250/50) 1 puff IH Q12 [facility] Last Admin: 09/11/17 08:55 Dose: 1 puff Tiotropium [place] (Spiriva) 18 mcg INH DAILY [facility] Last Admin: 09/11/17 09:02 Dose: 18 mcg - Labs Labs: 09/09/17 08:15 09/09/17 08:15 PT 12.4 Seconds (9.8-13.1) 09/04/17 08:00 INR 1.1 (0.9-1.2) 09/04/17 08:00 APTT 30.8 Seconds (25.6-37.1) 09/04/17 08:00 - Constitutional Appears: Non-toxic, Chronically Ill - Head Exam Head Exam: NORMOCEPHALIC - Eye Exam Eye Exam: PERRL - ENT Exam ENT Exam: Mucous Membranes Dry - Neck Exam Neck Exam: absent: Lymphadenopathy - Respiratory Exam Respiratory Exam: Decreased Breath Sounds - Cardiovascular Exam Cardiovascular Exam: REGULAR RHYTHM - GI/Abdominal Exam GI & Abdominal Exam: Distended Assessment and Plan (1) Asthma attack Status: Acute (2) Asthma exacerbation Status: Acute (3) Asthma, severe persistent Status: Acute (4) Hypoxia Status: Acute (5) Multiple sclerosis exacerbation Status: Acute (6) Debility Status: Chronic (7) Multiple sclerosis Status: Chronic
[2017-09-11] MEDS ORDERED: methylPREDNISolone 30 MG in Sodium Chloride 0.9% 50 ML IVPB SCH (21:00)
[2017-09-12 09:13] LABS: BASO % 0.2 % (0.0-2.0); HEMATOCRIT 40.1 % (34.0-47.0); LYMPH # 1.9 K/uL (1.0-4.3); MEAN CELL VOLUME 79.3 fl (81.0-99.0); MEAN CORPUSCULAR HEMOGLOBIN 25.4 pg (27.0-31.0); MEAN PLATELET VOLUME 8.2 fl (7.2-11.7); MONO # 1.1 K/uL (0.0-0.8); NEUT % 85.8 % (50.0-75.0); PLATELET COUNT 334 K/uL (130-400); RED CELL DISTRIBUTION WIDTH 18.7 % (11.5-14.5)
[2017-09-12] MEDS: Fluconazole IV 200mg/100 ml NS 100 ML IVPB SCH (09:14)
[2017-09-12] MEDS: Fluticasone-Salmeterol 250-50mcg Diskus IH SCH ×2 (09:14→21:28)
[2017-09-12] MEDS: Pantoprazole 40 mg EC Tab PO SCH (09:14)
[2017-09-12] MEDS: Potassium & Sodium Phosphate PO SCH (09:15)
[2017-09-12] MEDS: cefTRIAXone IV 1 gm in Dextros 50 ML IVPB SCH (09:15)
[2017-09-12] MEDS: Tiotropium 18 mcg Cap For Inhalation INH SCH (09:16)
[2017-09-12] MEDS: Enoxaparin 40 mg Syringe SC SCH (09:18)
[2017-09-12] MEDS: MethylPREDNISolone 40 mg Vial IVP SCH (09:19)
[2017-09-12 09:21] LABS: BLOOD UREA NITROGEN 29 mg/dl (7-17); CALCIUM 8.3 mg/dL (8.4-10.2); CARBON DIOXIDE 21 mmol/L (22-30); CHLORIDE 111 mmol/L (98-107); GFR AFRICAN-AMERICAN > 60; GLUCOSE,RANDOM 114 mg/dL (65-105); POTASSIUM 4.4 MMOL/L (3.6-5.0); SODIUM 140 mmol/l (132-148)
--- NOTE | 2017-09-12 10:28 | CP.PCM.PN ---
Addendum entered and electronically signed by Jahaira Jasmine MD 09/13/17 07:47: Discussed with Dr. Mariee Original Note: Subjective - Date & Time of Evaluation Date of Evaluation: 09/12/17 Time of Evaluation: 10:25 - Subjective Subjective: Pulmonology consult f/u: Pt seen and evaluated at bedside this morning. Appears comfortable. Complains of occasional left sided chest wall pain and mild right sided ear pain. Denies SOB, Wheezing,cough, dysuria, fever, chills. Has been using chest physiotherapy valve. Otherwise, feels fine today. Discussed the severity of her cat allergy and the future health consequences if she does not remove the cat from her home. Pt verbalized understanding. States she is strongly considering it. Objective - Vital Signs/Intake and Output Vital Signs (last 24 hours): Temp Pulse Resp BP Pulse Ox 97.4 F L 73 20 117/73 94 L 09/12/17 07:49 09/12/17 07:49 09/12/17 07:49 09/12/17 07:49 09/12/17 07:49 - Medications Medications: Current Medications Albuterol/Ipratropium (Duoneb 3 Mg/0.5 Mg (3 Ml) Ud) 3 ml INH RQ4 PRN PRN Reason: Shortness of Breath Last Admin: 09/09/17 08:09 Dose: 3 ml Baclofen (Lioresal) 20 mg PO TID [facility] Last Admin: 09/12/17 09:15 Dose: 20 mg Enoxaparin Sodium (Lovenox) 40 mg SC DAILY [facility] PRN Reason: Protocol Last Admin: 09/12/17 09:18 Dose: 40 mg Fluconazole (Diflucan Iv 200 Mg/100 Ml Ns) 100 mls @ 100 mls/hr IVPB DAILY [facility] Last Admin: 09/12/17 09:14 Dose: 100 mls/hr Ceftriaxone Sodium (Rocephin Iv 1 Gm Duplex) 50 mls @ 50 mls/hr IVPB DAILY [facility] PRN Reason: Protocol Last Admin: 09/12/17 09:15 Dose: 50 mls/hr Ibuprofen (Motrin Tab) 400 mg PO Q6 PRN PRN Reason: Pain, moderate (4-7) Last Admin: 09/12/17 08:10 Dose: 400 mg Lactulose (Enulose) 10 gm PO DAILY PRN PRN Reason: Constipation Methylprednisolone (Solu-Medrol) 30 mg IVP Q12 [facility] Last Admin: 09/12/17 09:19 Dose: 30 mg Montelukast Sodium (Singulair) 10 mg PO HS [facility] Last Admin: 09/11/17 21:27 Dose: 10 mg Pantoprazole Sodium (Protonix Ec Tab) 40 mg PO DAILY [facility] Last Admin: 09/12/17 09:14 Dose: 40 mg Potassium Phos/Sodium Phos (Neutra-Phos) 1 pkt PO DAILY [facility] Last Admin: 09/12/17 09:15 Dose: 1 pkt Fluticasone/Salmeterol (Advair Diskus 250/50) 1 puff IH Q12 [facility] Last Admin: 09/12/17 09:14 Dose: 1 puff Tiotropium [place] (Spiriva) 18 mcg INH DAILY [facility] Last Admin: 09/12/17 09:16 Dose: 18 mcg - Labs Labs: 09/12/17 09:00 09/12/17 09:00 PT 12.4 Seconds (9.8-13.1) 09/04/17 08:00 INR 1.1 (0.9-1.2) 09/04/17 08:00 APTT 30.8 Seconds (25.6-37.1) 09/04/17 08:00 - Constitutional Appears: Well (No acute distress) - Head Exam Head Exam: ATRAUMATIC - Eye Exam Eye Exam: EOMI, Normal appearance - ENT Exam ENT Exam: Mucous Membranes Moist Additional comments: +Oral thrush - Neck Exam Neck Exam: Full ROM, Normal Inspection - Respiratory Exam Respiratory Exam: Chest Wall Tenderness (Left sided chest wall tenderness to palpation), Clear to Ausculation Bilateral. absent: Accessory Muscle Use, Rales , Rhonchi, Wheezes, Stridor - Cardiovascular Exam Cardiovascular Exam: REGULAR RHYTHM, +S1, +S2. absent: Murmur - GI/Abdominal Exam GI & Abdominal Exam: Soft. absent: Tenderness - Back Exam Back Exam: CVA tenderness (L) (Questionnable CVA/Flank tenderness) - Neurological Exam Neurological Exam: Alert, Awake, Oriented x3 - Psychiatric Exam Psychiatric exam: Normal Mood Assessment and Plan - Assessment and Plan (Free Text) Assessment: 42 F with Hx of Asthma, MS being managed for Acute Asthma Exacerbation and UTI #Asthma Exacerbation -Seems to be resolving clinically. No wheezing on physical exam. -Last Cxray on 09/07- right middle lobe atelectasis vs infiltrate -Chest CT to evaluate Cxray finding. -Pt encouraged to do chest physiotherapy. Follow up peak flow measurements. -Discussed environmental trigger -C/w with current treatments #Leukocytosis -White count increased. 21 today. Afebrile -Likely secondary to UTI. + UCx from 09/07 growing Gram negative rods <10k CFU -Need to r/u other sources: BCx x2, repeat UCx and U/A ordered. F/u results -C/w Rocephin #Rib Pain, Left, Acute -Questionable CVA tenderness in setting of UTI vs exacerbation of MS symptoms vs Costochondritis -Rib Xray: negative for fracture #Ear pain -In the setting of Asthma, pt is susceptible to sinusitis. Need to r/u sinusitis as a source for white count. -F/U Sinus CT DVT: ambulating Regular diet Full code
[2017-09-12 10:38] LABS: NEUTROPHIL 84 % (42-75); TOTAL CELLS COUNTED 100
[2017-09-12] MEDS: Albuterol-Ipratrop 3 mg / 0.5 (3 ml) UD INH PRN (10:55)
--- NOTE | 2017-09-12 19:41 | CT ---
EXAM: CT Maxillofacial Sinuses Without Intravenous Contrast EXAM DATE/TIME: 09/12/2017 10:55 AM CLINICAL HISTORY: 42 years old, female; Pain; Other: Ear pain; Additional info: Ear pain, leukocytosis TECHNIQUE: Computed tomography images of the maxillofacial sinuses without intravenous contrast. All CT scans at this facility use one or more dose reduction techniques, viz.: automated exposure control; ma/kV adjustment per patient size (including targeted exams where dose is matched to indication; i.e. head); or iterative reconstruction technique. Coronal and sagittal reformatted images were created and reviewed. COMPARISON: There are no prior studies for comparison. FINDINGS: Sinuses: Frontal sinuses are well aerated. There is minimal mucosal debris in the right frontal sinus. There is mucoperiosteal thickening in ethmoid air cells. There is partial opacification of ethmoid air cells. There is minimal mucoperiosteal thickening in the sphenoid sinus. There is mucosal thickening in the maxillary sinuses. There are air-fluid levels in the maxillary sinuses. Right ostiomeatal complex is patent. Mucosal thickening occludes a portion of the left ostiomeatal complex. Nasal cavity/septum: Nasal cavity and nasopharynx are well aerated. There are no nasal fractures or acute osseous abnormalities. Bones/joints: Bony margins of the sinuses are intact. Bony orbits are intact. There are no acute osseous abnormalities. Soft tissues: unremarkable Dental: There are dental caries and erosions. Airway: Visualized portion of the airway is unremarkable. IMPRESSION: Bilateral maxillary sinusitis, mucoperiosteal thickening in sphenoid and ethmoid sinuses; partial occlusion of the left ostiomeatal complex; dental disease, complete dental evaluation advised
--- NOTE | 2017-09-12 20:02 | CT ---
EXAM: CT Chest Without Intravenous Contrast EXAM DATE/TIME: 09/12/2017 10:51 AM CLINICAL HISTORY: 42 years old, female; Signs and symptoms; Other: Abnormal chest x ray; Additional info: Abnormal cxray TECHNIQUE: Axial computed tomography images of the chest without intravenous contrast. All CT scans at this facility use one or more dose reduction techniques, viz.: automated exposure control; ma/kV adjustment per patient size (including targeted exams where dose is matched to indication; i.e. head); or iterative reconstruction technique. Coronal and sagittal reformatted images were created and reviewed. COMPARISON: Chest with ribs, 09/11/17 FINDINGS: Lungs and pleural spaces: Trachea and main bronchi are patent.There is no pneumothorax. There is partial consolidation of the right middle lobe with air bronchograms. There is minimal tree in bud opacity in the right upper and right lower lobes. There is minimal atelectasis and scarring at the left base. There is minimal apical pleural thickening bilaterally. There are no effusions Heart and vasculature: Heart size is normal.There is trace fluid in pericardial recesses.Aorta and main pulmonary artery are normal in caliber. Mediastinum: The esophagus is unremarkable. There are no pathologically enlarged mediastinal nodes.Tanika are not optimally evaluated without contrast material. Thyroid: Thyroid is only partially imaged. Bones/joints: There are early degenerative changes in the spine. There are small Schmorl's nodes at multiple levels. Soft tissues: unremarkable Upper abdomen: There are no acute abnormalities in the visualized portion of the abdomen. Gallbladder is absent. Common duct is prominent. There is right renal scarring. IMPRESSION: Right middle lobe airspace disease/pneumonia Additional findings as described above.
[2017-09-12 23:31] LABS: RBC URINE 1 /hpf (0-3); URINE BACTERIA FEW (<OCC); URINE BILIRUBIN NEGATIVE (NEGATIVE); URINE BLOOD NEGATIVE (NEGATIVE); URINE COLOR YELLOW (YELLOW); URINE GLUCOSE (UA) NEG (Normal); URINE KETONE TRACE mg/dL (NEGATIVE); URINE LEUKOCYTE ESTERASE SMALL Leu/uL (Negative); URINE PROTEIN 30 mg/dL (NEGATIVE); URINE UROBILINOGEN 0.2-1.0 mg/dL (0.2-1.0); WBC URINE 10 /hpf (0-5)
[2017-09-13 06:41] LABS: HEMATOCRIT 36.8 % (34.0-47.0); MEAN CELL VOLUME 78.7 fl (81.0-99.0); MEAN CORPUSCULAR HEMOGLOBIN 25.5 pg (27.0-31.0); MEAN CORPUSCULAR HGB CONC 32.3 g/dL (33.0-37.0); RED CELL DISTRIBUTION WIDTH 18.3 % (11.5-14.5); WHITE BLOOD COUNT 18.1 K/uL (4.8-10.8)
[2017-09-13 06:45] LABS: BLOOD UREA NITROGEN 29 mg/dl (7-17); CALCIUM 8.1 mg/dL (8.4-10.2); CARBON DIOXIDE 24 mmol/L (22-30); GFR AFRICAN-AMERICAN > 60; GLUCOSE,RANDOM 84 mg/dL (65-105); POTASSIUM 4.1 MMOL/L (3.6-5.0); SODIUM 139 mmol/l (132-148)
[2017-09-13 07:57] VITALS: BP 111/67; PULSE 68; RESP 20; TEMP 97.8; O2SAT 94
[2017-09-13] MEDS: Potassium & Sodium Phosphate PO SCH (09:46)
[2017-09-13] MEDS: Fluticasone-Salmeterol 250-50mcg Diskus IH SCH (09:46)
[2017-09-13] MEDS: Pantoprazole 40 mg EC Tab PO SCH (09:47)
[2017-09-13] MEDS: Tiotropium 18 mcg Cap For Inhalation INH SCH (09:47)
[2017-09-13] MEDS: cefTRIAXone IV 1 gm in Dextros 50 ML IVPB SCH (09:48)
[2017-09-13] MEDS: Enoxaparin 40 mg Syringe SC SCH (09:49)
--- NOTE | 2017-09-13 10:40 | CP.PCM.PN ---
<Jahaira Jasmine - Last Filed: 09/13/17 10:37> Subjective - Date & Time of Evaluation Date of Evaluation: 09/13/17 Time of Evaluation: 10:37 - Subjective Subjective: No acute overnight events. Pt seen and evaluated at the bedside this morning. States she feels comfortable. Mild productive cough, improving. Denies wheezing or dyspnea. Ear ache from yesterday improving. Pt has been doing chest physiotherapy consistently. States left sided rib pain has resolved as well. VSS, white count trending down. Good breath sounds BL, no rales or wheezing heard auscultation of lungs. Maxillary sinuses mildly tender to palpation. Sinus CT remarkable for BL Maxillary Sinusitis Chest CT remarkable for Right Middle lobe Atelectasis/Pneumonia U/A negative for UTI C/W Bronchodilator tx and ABX outpatient PO steroids will be tapered 5mg every other day. Diflucan IV to PO Patient states she will remove cat from home. Stable for D/C from Pulmonology perspective. Objective - Vital Signs/Intake and Output Vital Signs (last 24 hours): Temp Pulse Resp BP Pulse Ox 97.8 F 68 20 111/67 94 L 09/13/17 07:56 09/13/17 07:56 09/13/17 07:56 09/13/17 07:56 09/13/17 07:56 - Medications Medications: Current Medications Albuterol/Ipratropium (Duoneb 3 Mg/0.5 Mg (3 Ml) Ud) 3 ml INH RQ4 PRN PRN Reason: Shortness of Breath Last Admin: 09/12/17 10:55 Dose: 3 ml Baclofen (Lioresal) 20 mg PO TID [facility] Last Admin: 09/13/17 09:47 Dose: 20 mg Enoxaparin Sodium (Lovenox) 40 mg SC DAILY [facility] PRN Reason: Protocol Last Admin: 09/13/17 09:49 Dose: 40 mg Fluconazole (Diflucan Iv 200 Mg/100 Ml Ns) 100 mls @ 100 mls/hr IVPB DAILY [facility] Last Admin: 09/12/17 09:14 Dose: 100 mls/hr Ceftriaxone Sodium (Rocephin Iv 1 Gm Duplex) 50 mls @ 50 mls/hr IVPB DAILY [facility] PRN Reason: Protocol Last Admin: 09/13/17 09:48 Dose: 50 mls/hr Ibuprofen (Motrin Tab) 400 mg PO Q6 PRN PRN Reason: Pain, moderate (4-7) Last Admin: 09/13/17 05:39 Dose: 400 mg Lactulose (Enulose) 10 gm PO DAILY PRN PRN Reason: Constipation Lactulose (Enulose) 20 gm PO BID PRN PRN Reason: Constipation Montelukast Sodium (Singulair) 10 mg PO HS [facility] Last Admin: 09/12/17 21:28 Dose: 10 mg Pantoprazole Sodium (Protonix Ec Tab) 40 mg PO DAILY [facility] Last Admin: 09/13/17 09:47 Dose: 40 mg Potassium Phos/Sodium Phos (Neutra-Phos) 1 pkt PO DAILY [facility] Last Admin: 09/13/17 09:46 Dose: 1 pkt Prednisone (Prednisone Tab) 20 mg PO BID [facility] Last Admin: 09/13/17 09:47 Dose: 20 mg Fluticasone/Salmeterol (Advair Diskus 250/50) 1 puff IH Q12 [facility] Last Admin: 09/13/17 09:46 Dose: 1 puff Tiotropium [place] (Spiriva) 18 mcg INH DAILY [facility] Last Admin: 09/13/17 09:47 Dose: 18 mcg - Labs Labs: 09/13/17 05:55 09/13/17 05:55 PT 12.4 Seconds (9.8-13.1) 09/04/17 08:00 INR 1.1 (0.9-1.2) 09/04/17 08:00 APTT 30.8 Seconds (25.6-37.1) 09/04/17 08:00 - Constitutional Appears: Well, No Acute Distress - ENT Exam ENT Exam: Mucous Membranes Moist, Normal Oropharynx - Respiratory Exam Respiratory Exam: absent: Accessory Muscle Use - Cardiovascular Exam Cardiovascular Exam: +S1, +S2. absent: Murmur - GI/Abdominal Exam GI & Abdominal Exam: Soft. absent: Tenderness - Neurological Exam Neurological Exam: Alert, Awake, Oriented x3 <Stas Mariee - Last Filed: 09/13/17 11:01> Subjective - Subjective Subjective: Case discussed and findings reviewed. Agree with assessment and plan. Objective - Vital Signs/Intake and Output Vital Signs (last 24 hours): Temp Pulse Resp BP Pulse Ox 97.8 F 68 20 111/67 94 L 09/13/17 07:56 09/13/17 07:56 09/13/17 07:56 09/13/17 07:56 09/13/17 07:56 - Medications Medications: Current Medications Albuterol/Ipratropium (Duoneb 3 Mg/0.5 Mg (3 Ml) Ud) 3 ml INH RQ4 PRN PRN Reason: Shortness of Breath Last Admin: 09/12/17 10:55 Dose: 3 ml Baclofen (Lioresal) 20 mg PO TID [facility] Last Admin: 09/13/17 09:47 Dose: 20 mg Enoxaparin Sodium (Lovenox) 40 mg SC DAILY [facility] PRN Reason: Protocol Last Admin: 09/13/17 09:49 Dose: 40 mg Fluconazole (Diflucan Iv 200 Mg/100 Ml Ns) 100 mls @ 100 mls/hr IVPB DAILY [facility] Last Admin: 09/12/17 09:14 Dose: 100 mls/hr Ceftriaxone Sodium (Rocephin Iv 1 Gm Duplex) 50 mls @ 50 mls/hr IVPB DAILY [facility] PRN Reason: Protocol Last Admin: 09/13/17 09:48 Dose: 50 mls/hr Ibuprofen (Motrin Tab) 400 mg PO Q6 PRN PRN Reason: Pain, moderate (4-7) Last Admin: 09/13/17 05:39 Dose: 400 mg Lactulose (Enulose) 10 gm PO DAILY PRN PRN Reason: Constipation Lactulose (Enulose) 20 gm PO BID PRN PRN Reason: Constipation Montelukast Sodium (Singulair) 10 mg PO HS [facility] Last Admin: 09/12/17 21:28 Dose: 10 mg Pantoprazole Sodium (Protonix Ec Tab) 40 mg PO DAILY [facility] Last Admin: 09/13/17 09:47 Dose: 40 mg Potassium Phos/Sodium Phos (Neutra-Phos) 1 pkt PO DAILY [facility] Last Admin: 09/13/17 09:46 Dose: 1 pkt Prednisone (Prednisone Tab) 20 mg PO BID [facility] Last Admin: 09/13/17 09:47 Dose: 20 mg Fluticasone/Salmeterol (Advair Diskus 250/50) 1 puff IH Q12 [facility] Last Admin: 09/13/17 09:46 Dose: 1 puff Tiotropium [place] (Spiriva) 18 mcg INH DAILY [facility] Last Admin: 09/13/17 09:47 Dose: 18 mcg - Labs Labs: 09/13/17 05:55 09/13/17 05:55 PT 12.4 Seconds (9.8-13.1) 09/04/17 08:00 INR 1.1 (0.9-1.2) 09/04/17 08:00 APTT 30.8 Seconds (25.6-37.1) 09/04/17 08:00 Assessment and Plan (1) Asthma exacerbation Status: Acute
--- NOTE | 2017-09-13 12:37 | CP.PCM.PN ---
Subjective - Date & Time of Evaluation Date of Evaluation: 09/13/17 Time of Evaluation: 08:00 - Subjective Subjective: improving slowly alert nad denies chest pain Objective - Vital Signs/Intake and Output Vital Signs (last 24 hours): Temp Pulse Resp BP Pulse Ox 97.8 F 68 20 111/67 94 L 09/13/17 07:56 09/13/17 07:56 09/13/17 07:56 09/13/17 07:56 09/13/17 07:56 - Medications Medications: Current Medications Albuterol/Ipratropium (Duoneb 3 Mg/0.5 Mg (3 Ml) Ud) 3 ml INH RQ4 PRN PRN Reason: Shortness of Breath Last Admin: 09/12/17 10:55 Dose: 3 ml Baclofen (Lioresal) 20 mg PO TID [facility] Last Admin: 09/13/17 09:47 Dose: 20 mg Enoxaparin Sodium (Lovenox) 40 mg SC DAILY [facility] PRN Reason: Protocol Last Admin: 09/13/17 09:49 Dose: 40 mg Fluconazole (Diflucan) 100 mg PO DAILY [facility] PRN Reason: Protocol Ceftriaxone Sodium (Rocephin Iv 1 Gm Duplex) 50 mls @ 50 mls/hr IVPB DAILY [facility] PRN Reason: Protocol Last Admin: 09/13/17 09:48 Dose: 50 mls/hr Ibuprofen (Motrin Tab) 400 mg PO Q6 PRN PRN Reason: Pain, moderate (4-7) Last Admin: 09/13/17 05:39 Dose: 400 mg Lactulose (Enulose) 10 gm PO DAILY PRN PRN Reason: Constipation Lactulose (Enulose) 20 gm PO BID PRN PRN Reason: Constipation Last Admin: 09/13/17 11:18 Dose: 20 gm Montelukast Sodium (Singulair) 10 mg PO HS [facility] Last Admin: 09/12/17 21:28 Dose: 10 mg Pantoprazole Sodium (Protonix Ec Tab) 40 mg PO DAILY [facility] Last Admin: 09/13/17 09:47 Dose: 40 mg Potassium Phos/Sodium Phos (Neutra-Phos) 1 pkt PO DAILY [facility] Last Admin: 09/13/17 09:46 Dose: 1 pkt Prednisone (Prednisone Tab) 20 mg PO BID [facility] Last Admin: 09/13/17 09:47 Dose: 20 mg Fluticasone/Salmeterol (Advair Diskus 250/50) 1 puff IH Q12 [facility] Last Admin: 09/13/17 09:46 Dose: 1 puff Tiotropium [place] (Spiriva) 18 mcg INH DAILY [facility] Last Admin: 09/13/17 09:47 Dose: 18 mcg - Labs Labs: 09/13/17 05:55 09/13/17 05:55 PT 12.4 Seconds (9.8-13.1) 09/04/17 08:00 INR 1.1 (0.9-1.2) 09/04/17 08:00 APTT 30.8 Seconds (25.6-37.1) 09/04/17 08:00 - Constitutional Appears: Non-toxic, Chronically Ill - Head Exam Head Exam: NORMOCEPHALIC - Eye Exam Eye Exam: PERRL - ENT Exam ENT Exam: Mucous Membranes Dry - Neck Exam Neck Exam: absent: Lymphadenopathy - Respiratory Exam Respiratory Exam: Decreased Breath Sounds - Cardiovascular Exam Cardiovascular Exam: REGULAR RHYTHM - GI/Abdominal Exam GI & Abdominal Exam: Distended, Soft - Rectal Exam Rectal Exam: Deferred - Exam Exam: NORMAL INSPECTION - Extremities Exam Extremities Exam: absent: Pedal Edema - Back Exam Back Exam: absent: CVA tenderness (L), CVA tenderness (R) - Neurological Exam Neurological Exam: Alert, Awake, Oriented x3 - Psychiatric Exam Psychiatric exam: Normal Mood - Skin Skin Exam: Dry Assessment and Plan (1) Asthma attack Status: Acute (2) Asthma exacerbation Status: Acute (3) Asthma, severe persistent Status: Acute (4) Hypoxia Status: Acute (5) Multiple sclerosis exacerbation Status: Acute (6) Debility Status: Chronic (7) Multiple sclerosis Status: Chronic
[2017-09-13 16:01] LABS: CHLORIDE 109 mmol/L (98-107)
--- NOTE | 2017-09-14 14:35 | PN ---
DATE: 09/12/[address] Holder. SUBJECTIVE: The patient had some wheezing and minimal cough on current medications. PHYSICAL EXAMINATION: VITAL SIGNS: Blood pressure was 117/73, temperature 97.4, respiratory rate 20, and pulse 73. HEENT: Pupils are equal and reactive to light. Normal-appearing mucosa of the conjunctivae, oropharynx, and nasal membrane mucosa. NECK: Supple. No JVD. No carotid bruit. No lymph node. No thyromegaly. CHEST AND LUNGS: Bilateral symmetrical expansion. Few scattered rhonchi. CARDIOVASCULAR SYSTEM: PMI not localized. S1 and S2. No additional sounds. ABDOMEN: Normoactive bowel sounds. No tenderness. No organomegaly. No masses. EXTREMITIES: No cyanosis. No clubbing. No edema. CENTRAL NERVOUS SYSTEM: Alert, awake, and oriented x2. The patient has unsteadiness with generalized weakness. ASSESSMENT: 1. Obstructive lung disease, which is improving. 2. History of multiple sclerosis. PLAN: Continue current medications and follow pulmonary recommendations and physical therapy. Nancy Guan MD
--- NOTE | 2017-09-15 04:37 | DS ---
REASON FOR ADMISSION: This is a 42-year-old female, who has a history of multiple sclerosis, who was admitted for exacerbation of obstructive lung disease. COURSE OF HOSPITALIZATION: The patient was admitted to medical floor and she was started on nebulizer treatment as well as steroid and IV antibiotics. The patient responded well to the treatment and she was started on physical therapy and discharged on 09/13/2017 to [facility]. FINAL DIAGNOSES: 1. Exacerbation of obstructive lung disease. 2. History of multiple sclerosis. [facility] MD Roge
== END 2017-09-13 16:00 | DRG 59 ==
LOC: H.ER 07:05 → H.ERHOLD 11:27 → H.TEL 12:35 → OBSVTOIN 09-05 13:57 → H.MEDSURG1 09-10 18:01
PROVIDERS: ADMIT Internal Medicine; ATTEND Internal Medicine
DX: G35 Multiple sclerosis (principal); J45.51 Severe persistent asthma with (acute) exacerbation; N39.0 Urinary tract infection, site not specified; J32.0 Chronic maxillary sinusitis; B37.9 Candidiasis, unspecified; F17.210 Nicotine dependence, cigarettes, uncomplicated; M54.5 Low back pain; R09.02 Hypoxemia; Z91.041 Radiographic dye allergy status; R53.81 Other malaise; R07.81 Pleurodynia

== ENCOUNTER 2017-09-28 15:51 | Emergency (ER) | payer MEDICARE ==
[2017-09-28 15:52] VITALS: BMI 24.3
[2017-09-28 15:56] VITALS: BP 106/54; PULSE 91; RESP 18; TEMP 98.7; O2SAT 100
--- NOTE | 2017-09-28 16:09 | ED PDOC ---
HPI: General Adult Time Seen by Provider: 09/28/17 15:58 Chief Complaint (Nursing): Breast Problem Chief Complaint (Provider): Breast Problem History Per: Patient History/Exam Limitations: no limitations Onset/Duration Of Symptoms: Days (x1) Current Symptoms Are (Timing): Still Present Additional Complaint(s): Miryam Queen is a 42 year old female that presents to the ED with a chief complaint of left breast pain that she was experiencing earlier today. Patient was at her PMD when she reported said pain as "chest pain," prompting her ED visit. However she reports that her pain has since resolved, and that it is consistent with pain that she typically experiences while she is on her period, which she began today unexpectedly. Menses was due next week. Past Medical History Reviewed: Historical Data, Nursing Documentation, Vital Signs Vital Signs: Last Vital Signs Temp 98.7 F 09/28/17 15:53 Pulse 91 H 09/28/17 15:53 Resp 18 09/28/17 15:53 BP 106/54 L 09/28/17 15:53 Pulse Ox 100 09/28/17 16:16 - Medical History PMH: Asthma, Migraine, Multiple Sclerosis Denies: Chronic Kidney Disease - Surgical History Surgical History: Cholecystectomy - Family History Family History: States: Unknown Family Hx - Home Medications Home Medications: Ambulatory Orders Medication Instructions Recorded Baclofen [Lioresal] 20 mg PO TID 09/04/17 Montelukast [Singulair] 10 mg PO HS 09/04/17 Albuterol/Ipratropium [Duoneb 3 3 ml INH RQ4 PRN neb 09/13/17 mg/0.5 mg (3 ml) UD] Enoxaparin [Lovenox] 40 mg SC DAILY syr 09/13/17 Fluconazole [Diflucan] 100 mg PO DAILY #5 tab 09/13/17 Fluticasone/Salmeterol 250/50 1 puff IH Q12 puff 09/13/17 [Advair Diskus 250/50] Ibuprofen [Motrin Tab] 400 mg PO Q6 PRN tab 09/13/17 Lactulose [Enulose] 10 gm PO DAILY PRN udc 09/13/17 Pantoprazole [Protonix EC Tab] 40 mg PO DAILY ect 09/13/17 Phosphorus/Potassium/Sodium 1 pkt PO DAILY packet 09/13/17 [Neutra-Phos] Tiotropium [Spiriva] 18 mcg INH DAILY cap 09/13/17 cefTRIAXone 1 gm [Rocephin 1 gram 1 gm IVPB DAILY #7 bag 09/13/17 IVPB] predniSONE [predniSONE Tab] 20 mg PO BID tab 09/13/17 - Allergies Allergies/Adverse Reactions: Allergies Allergy/AdvReac Type Severity Reaction Status Date / Time iodine Allergy RASH Verified 09/04/17 07:15 Review of Systems ROS Statement: Except As Marked, All Systems Reviewed And Found Negative Genitourinary Female: Positive for: Other (left breast pain, resolved) Physical Exam - Reviewed Nursing Documentation Reviewed: Yes Vital Signs Reviewed: Yes - Physical Exam Appears: Positive for: Well, Non-toxic, No Acute Distress Head Exam: Positive for: ATRAUMATIC, NORMOCEPHALIC Skin: Positive for: Normal Color, Warm Eye Exam: Positive for: EOMI, Normal appearance, PERRL ENT: Positive for: Normal ENT Inspection Neck: Positive for: Normal Cardiovascular/Chest: Positive for: Regular Rate, Rhythm. Negative for: Murmur Respiratory: Positive for: Normal Breath Sounds. Negative for: Wheezing Neurologic/Psych: Positive for: Alert, Oriented. Negative for: Motor/Sensory Deficits - ECG O2 Sat by Pulse Oximetry: 100 (RA) Pulse Ox Interpretation: Normal Medical Decision Making Medical Decision Making: Impression: Breast Pain as a result of Period Plan: * EKG * Reevaluation EKG NSR Scribe Attestation: Documented by Kerry Sosa, acting as a scribe for Tori Braun PA-C. Provider Scribe Attestation: All medical record entries made by the Scribe were at my direction and personally dictated by me. I have reviewed the chart and agree that the record accurately reflects my personal performance of the history, physical exam, medical decision making, and the department course for this patient. I have also personally directed, reviewed, and agree with the discharge instructions and disposition. Disposition - Clinical Impression Clinical Impression: Breast tenderness in female - Patient ED Disposition Is Patient to be Admitted: No Counseled Patient/Family Regarding: Diagnosis, Need For Followup - Disposition Disposition: Routine/Home Disposition Time: 16:29 Condition: GOOD Instructions: Breast Self Exam for Women (ED) Forms: [employer] (Malay)
--- NOTE | 2017-09-29 12:07 | CARD ---
APPROVED REPORT EKG Measurement Heart [id number] <Conclusion> Normal sinus rhythm Normal ECG
== END 2017-09-28 17:55 ==
LOC: H.ER 15:51
DX: N64.4 Mastodynia (principal); G35 Multiple sclerosis; J45.909 Unspecified asthma, uncomplicated

== ENCOUNTER 2018-04-12 16:47 | Emergency (ER) | payer MEDICARE ==
[2018-04-12 16:48] VITALS: BMI 24.3
--- NOTE | 2018-04-12 17:56 | ED PDOC ---
HPI: CCC, URI, Sore Throat Time Seen by Provider: 04/12/18 17:27 Chief Complaint (Nursing): Cough, Cold, Congestion Chief Complaint (Provider): cough History Per: Patient Additional Complaint(s): 42-year-old female with history of asthma presents with cough, chest congestion , wheezing and shortness of breath that started 2 days ago. Patient also has sore throat and lost her voice. She denies any known fever and has no chills. Patient did albuterol treatment earlier today at home which did not help. PMD: Dr. Holder Past Medical History Reviewed: Historical Data, Nursing Documentation, Vital Signs Vital Signs: Last Vital Signs Temp 98.3 F 04/12/18 18:25 Pulse 103 H 04/12/18 18:25 Resp 18 04/12/18 18:25 BP 126/67 04/12/18 18:25 Pulse Ox 97 04/12/18 18:25 - Medical History PMH: Asthma, Migraine, Multiple Sclerosis - Surgical History Surgical History: Cholecystectomy - Family History Family History: States: No Known Family Hx - Living Arrangements Living Arrangements: With Family - Social History Current smoker - smoking cessation education provided: No Alcohol: None Drugs: Denies - Home Medications Home Medications: Ambulatory Orders Medication Instructions Recorded Baclofen [Lioresal] 20 mg PO TID 09/04/17 Montelukast [Singulair] 10 mg PO HS 09/04/17 Albuterol/Ipratropium [Duoneb 3 3 ml INH RQ4 PRN neb 09/13/17 mg/0.5 mg (3 ml) UD] Enoxaparin [Lovenox] 40 mg SC DAILY syr 09/13/17 Fluconazole [Diflucan] 100 mg PO DAILY #5 tab 09/13/17 Fluticasone/Salmeterol 250/50 1 puff IH Q12 puff 09/13/17 [Advair Diskus 250/50] Ibuprofen [Motrin Tab] 400 mg PO Q6 PRN tab 09/13/17 Lactulose [Enulose] 10 gm PO DAILY PRN udc 09/13/17 Pantoprazole [Protonix EC Tab] 40 mg PO DAILY ect 09/13/17 Phosphorus/Potassium/Sodium 1 pkt PO DAILY packet 09/13/17 [Neutra-Phos] Tiotropium [Spiriva] 18 mcg INH DAILY cap 09/13/17 cefTRIAXone 1 gm [Rocephin 1 gram 1 gm IVPB DAILY #7 bag 09/13/17 IVPB] predniSONE [predniSONE Tab] 20 mg PO BID tab 09/13/17 - Allergies Allergies/Adverse Reactions: Allergies Allergy/AdvReac Type Severity Reaction Status Date / Time iodine Allergy RASH Verified 04/12/18 16:54 Review of Systems ROS Statement: Except As Marked, All Systems Reviewed And Found Negative Constitutional: Negative for: Fever, Chills Cardiovascular: Positive for: Chest Pain (due to cough) Respiratory: Positive for: Cough Gastrointestinal: Negative for: Nausea, Vomiting Neurological: Negative for: Headache, Dizziness Physical Exam - Reviewed Nursing Documentation Reviewed: Yes Vital Signs Reviewed: Yes - Physical Exam Appears: Positive for: Well, Non-toxic, No Acute Distress Head Exam: Positive for: ATRAUMATIC, NORMAL INSPECTION, NORMOCEPHALIC Skin: Positive for: Normal Color, Warm. Negative for: Rash Eye Exam: Positive for: Normal appearance Cardiovascular/Chest: Positive for: Regular Rate, Rhythm Respiratory: Positive for: Normal Breath Sounds, Wheezing. Negative for: Accessory Muscle Use, Crackles, Rales, Rhonchi, Respiratory Distress Extremity: Positive for: Normal ROM Neurologic/Psych: Positive for: Alert, Oriented - Laboratory Results Result Diagrams: 04/12/18 18:38 04/12/18 18:38 Urine POC: Negative - ECG Interpretation Of ECG: Sinus tach 109 bpm, no acute changes, reviewed by PA and ED attending - Other Rad CXR X-Ray: Interpreted by Me, Viewed By Me X-Ray Interpretation: no acute finding Nebulizer Treatments/Peak Flow - Duonebs Number of Bronchodilator Doses given?: 3 (duonebs) - Steroid Treatment Steroid: IV (125 mg IV solumedrol) Medical Decision Making Medical Decision Makin42 year old with cough and sore throat Plan: CXR EKG test Duoneb x 3 IVF CBC CMP Troponin IV solumedrol 125 mg Rapid strep Disposition - Clinical Impression Clinical Impression: Shortness of breath - Patient ED Disposition Is Patient to be Admitted: Transfer of Care - Disposition Disposition: Transfer of Care Disposition Time: 19:58 Condition: FAIR Forms: [facility] (Romansh) Patient Signed Over To: Apple Raines Handoff Comments: Signed out pending diagnostic testing results, re-evaluation and final disposition Results - Lab Results Lab Results: 04/12/18 04/12/18 18:38 18:38 WBC 7.0 D RBC 5.05 Hgb 14.1 D Hct 42.6 MCV 84.5 D MCH 27.9 MCHC 33.0 RDW 17.2 H Plt Count 255 MPV 9.3 Neut % (Auto) 80.3 H Lymph % (Auto) 8.5 L [place] % (Auto) 7.2 Eos % (Auto) 3.6 Baso % (Auto) 0.4 Neut # (Auto) 5.6 Lymph # (Auto) 0.6 L [place] # (Auto) 0.5 Eos # (Auto) 0.3 Baso # (Auto) 0.0 Neutrophils % (Manual) Pending Lymphocytes % (Manual) Pending Monocytes % (Manual) Pending Platelet Estimate Pending Sodium 140 Potassium 3.6 Chloride 106 Carbon Dioxide 23 Anion Gap 15 BUN 15 Creatinine 0.6 L Est GFR ( Amer) > 60 Est GFR (Non-Af Amer) > 60 Random Glucose 103 Calcium 8.8 Total Bilirubin 0.8 AST 35 ALT 44 Alkaline Phosphatase 106 Troponin I < 0.0120 Total Protein 7.9 Albumin 4.1 Globulin 3.8 Albumin/Globulin Ratio 1.1
[2018-04-12] MEDS ORDERED: Albuterol-Ipratrop 3 mg / 0.5 (3 ml) UD INH STA ×3 (17:59→19:29)
[2018-04-12] MEDS ORDERED: Sodium Chloride 0.9% 1,000 ML IV STA (17:59)
[2018-04-12] MEDS ORDERED: Albuterol-Ipratrop 3 mg / 0.5 (3 ml) UD ONE ×2 (18:28→19:44)
[2018-04-12 18:45] VITALS: PULSE 103
--- NOTE | 2018-04-12 18:51 | RAD ---
HISTORY: Cough COMPARISON: 09/11/2017 TECHNIQUE: Chest PA and lateral FINDINGS: LUNGS: No active pulmonary disease. PLEURA: No significant pleural effusion identified. No pneumothorax apparent. CARDIOVASCULAR: Normal. OSSEOUS STRUCTURES: No significant abnormalities. VISUALIZED UPPER ABDOMEN: Normal. OTHER FINDINGS: None. IMPRESSION: No active disease. No significant interval change compared to the prior examination(s). [facility] department
[2018-04-12 18:54] LABS: BASO % 0.4 % (0.0-2.0); EOS # 0.3 K/uL (0.0-0.7); EOS % 3.6 % (0.0-4.0); HEMOGLOBIN 14.1 g/dL (12.0-16.0); LYMPH # 0.6 K/uL (1.0-4.3); LYMPH % 8.5 % (20.0-40.0); MEAN CELL VOLUME 84.5 fl (81.0-99.0); MEAN CORPUSCULAR HEMOGLOBIN 27.9 pg (27.0-31.0); MEAN PLATELET VOLUME 9.3 fl (7.2-11.7); MONO # 0.5 K/uL (0.0-0.8); MONO % 7.2 % (0.0-10.0); NEUT # 5.6 K/uL (1.8-7.0); NEUT % 80.3 % (50.0-75.0); PLATELET COUNT 255 K/uL (130-400); RBC 5.05 Mil/uL (3.80-5.20); RED CELL DISTRIBUTION WIDTH 17.2 % (11.5-14.5)
[2018-04-12 19:06] LABS: ALB/GLOB RATIO 1.1 (1.0-2.1); ALBUMIN 4.1 g/dL (3.5-5.0); ALT/SGPT 44 U/L (9-52); AST/SGOT 35 U/L (14-36); BLOOD UREA NITROGEN 15 mg/dl (7-17); CALCIUM 8.8 mg/dL (8.4-10.2); GFR AFRICAN-AMERICAN > 60; GFR NON-AFRICAN AMERICAN > 60
[2018-04-12 20:00] LABS: BANDS 2 % (0-2); EOSINOPHIL 4 % (0-7); LYMPHOCYTE 12 % (20-50); MONOCYTE 8 % (0-10); NEUTROPHIL 74 % (42-75); TOTAL CELLS COUNTED 100
[2018-04-12 20:01] LABS: HYPOCHROMIC SLIGHT; MICROCYTOSIS SLIGHT; PLATELET ESTIMATE NORMAL (NORMAL)
--- NOTE | 2018-04-12 20:21 | ED PDOC ---
- Laboratory Results Result Diagrams: 04/12/18 18:38 04/12/18 18:38 Urine POC: Negative - ECG O2 Sat by Pulse Oximetry: 97 (RA) Pulse Ox Interpretation: Normal Medical Decision Making Medical Decision Making: Case endorsed to check writer, Domenica Raines PA-C, at 2000 due to shift change. Pertinent details reviewed. Patient pending re-evaluation and further disposition. Labs reviewed and grossly unremarkable. Rapid strep pending. CXR reviewed: no acute disease as read by Yanna IRELAND. 2100 Rapid strep: Negative On re-evaluation, patient with faint, diffuse inspiratory and expiratory wheezing. Patient reports she feels much improved. Speaking in full sentences, respirations even and nonlabored. Additional Alb 2.5mg INH ordered. 2245 Repeat HR: 103 Repeat BP: 142/88 Repeat O2: 97% on RA On re-evaluation, patient reports resolution of symptoms. On exam, patient remains AAOx3, in no acute distress. On exam, neck is supple, lungs CTA bilaterally, cardiac RRR, neuro exam shows no focal findings. VSS, stable for discharge. Diagnostic results d/w the patient in great detail. Dx of asthma exacerbation, SOB, sore throat d/w the patient. Based on history, exam and diagnostic results plan will be for discharge and outpatient follow up. Advised to follow up with primary care physician/clinic/referred provider in 1- 2 days without fail. Return to the emergency room at any time for any new or worsening symptoms. Patient states she fully agrees with and understands discharge instructions. States that she agrees with the plan and disposition. Verbalized and repeated discharge instructions and plan. I have given the patient opportunity to ask any additional questions. Disposition Counseled Patient/Family Regarding: Studies Performed, Diagnosis, Need For Followup, Rx Given - Clinical Impression Clinical Impression: Shortness of breath, Asthma attack, Sore throat - POA Present On Arrival: None - Disposition Referrals: Anson Holder MD [Family Provider] - Disposition: Routine/Home Disposition Time: 22:45 Condition: IMPROVED Additional Instructions: FOLLOW UP WITH PMD IN 1-2 DAYS WITHOUT FAIL. RETURN TO ED WITH ANY NEW OR WORSENING SYMPTOMS. Prescriptions: Albuterol Sulfate [Ventolin Hfa] 1 puff IH Q2 #1 each predniSONE [predniSONE Tab] 40 mg PO DAILY #10 tab Promethazine DM [Phenergan DM Syrup] 5 ml PO Q6 #150 ml Instructions: Asthma in Adults, Sore Throat, Adult (DC), Shortness of Breath ( Dyspnea) (DC), Medicines for Asthma Forms: [employer] (Korean) Print Language: KYRGYZ Results - Lab Results Lab Results: 04/12/18 04/12/18 04/12/18 19:55 18:38 18:38 WBC 7.0 D RBC 5.05 Hgb 14.1 D Hct 42.6 MCV 84.5 D MCH 27.9 MCHC 33.0 RDW 17.2 H Plt Count 255 MPV 9.3 Neut % (Auto) 80.3 H Lymph % (Auto) 8.5 L [place] % (Auto) 7.2 Eos % (Auto) 3.6 Baso % (Auto) 0.4 Neut # (Auto) 5.6 Lymph # (Auto) 0.6 L [place] # (Auto) 0.5 Eos # (Auto) 0.3 Baso # (Auto) 0.0 Neutrophils % (Manual) 74 Band Neutrophils % 2 Lymphocytes % (Manual) 12 L Monocytes % (Manual) 8 Eosinophils % (Manual) 4 Platelet Estimate Normal Hypochromasia (manual) Slight Microcytosis (manual) Slight Sodium 140 Potassium 3.6 Chloride 106 Carbon Dioxide 23 Anion Gap 15 BUN 15 Creatinine 0.6 L Est GFR ( Amer) > 60 Est GFR (Non-Af Amer) > 60 Random Glucose 103 Calcium 8.8 Total Bilirubin 0.8 AST 35 ALT 44 Alkaline Phosphatase 106 Troponin I < 0.0120 Total Protein 7.9 Albumin 4.1 Globulin 3.8 Albumin/Globulin Ratio 1.1 Grp A Beta Strep Ag Negative
[2018-04-12] MEDS ORDERED: Albuterol 0.083% Inhal Sol (2.5 mg/3 mL) UD INH STA (21:03)
[2018-04-12] MEDS ORDERED: Albuterol 0.083% Inhal Sol (2.5 mg/3 mL) UD ONE (21:21)
[2018-04-12 22:25] VITALS: BP 142/88; RESP 20; TEMP 98.2
[2018-04-12 22:46] VITALS: O2SAT 97
== END 2018-04-12 23:20 | disposition home or self-care (01) ==
LOC: H.ER 16:47
DX: J45.901 Unspecified asthma with (acute) exacerbation (principal); J02.9 Acute pharyngitis, unspecified; G35 Multiple sclerosis
CPT/HCPCS: 71046; 80053; 81025; 84484; 85025; 87070; 87430; 94150; 94640; 96361; 96374; 99285; J2930; J7030